=== PATIENT | male | born 1985 ===

== ENCOUNTER → 2018-03-24 14:02 | Outpatient (CLI) | payer MEDICARE, MEDICAID, SELFPAY ==
[2018-03-24 15:02] LABS: Hemoglobin A1C% w Est Avg Glu 5.8 % (4.0-6.0)
[2018-03-24 17:01] LABS: Estimated Glomerular Filt Rate > 60.0 mL/min (>60); Glucose 97 mg/dL (70-100); HEMOLYSIS 27 (0-50); Potassium 4.4 mmol/L (3.4-5.1); Sodium 142 mmol/L (137-145)
== END ==
PROVIDERS: PCP Internal Medicine; Visit Provider Internal Medicine
DX: R73.02 Impaired glucose tolerance (oral) (principal)
CPT/HCPCS: 36415; 80048; 83036

== ENCOUNTER → 2018-09-22 08:40 | Outpatient (CLI) | payer MEDICARE, MEDICAID, SELFPAY ==
[2018-09-22 09:04] LABS: Add Manual Diff / Slide Review NO; Basophils Percent Auto 0.5 % (0-2); Eosinophils Percent Auto 0.7 % (2-4); Hematocrit 42.9 % (41-53); Hemoglobin 14.3 g/dL (13.5-17.5); Mean Corpuscular HGB Conc 33.3 % (30-36); Mean Corpuscular Hemoglobin 28.3 PG (26-34); Mean Corpuscular Volume 84.9 fL (80-100); Neutrophils Absolute Auto 3900 /uL (3000-5900); Neutrophils Percent Auto 52.8 % (50-75); Platelet Count 336 X10^3/uL (150-400); Red Blood Cell Count 5.06 X10^6/uL (4.5-5.9); Red Cell Distribution Width 13.8 % (11.6-14.8); White Blood Cell Count 7.4 X10^3/uL (4.5-11.0)
[2018-09-22 09:23] LABS: Hemoglobin A1C% w Est Avg Glu 5.9 % (4.0-6.0)
[2018-09-22 09:32] LABS: Alanine Aminotransferase 66 IU/L (21-72); Albumin 4.4 g/dL (3.5-5.0); Albumin Globulin Ratio 1.4 (1.0-2.8); Alkaline Phosphatase 77 U/L (38-126); Aspartate Aminotransferase 37 IU/L (17-59); Bilirubin Total 0.9 mg/dL (0.2-1.3); Blood Urea Nitrogen 15 mg/dL (9-20); Calcium 9.7 mg/dL (8.4-10.2); Carbon Dioxide 32 mmol/L (22-32); Chloride 102 mmol/L (98-107); Estimated Glomerular Filt Rate > 60.0 mL/min (>60); Globulin 3.1 g/dL (1.7-4.1); Glucose 106 mg/dL (70-100); HEMOLYSIS < 15 (0-50); Potassium 4.5 mmol/L (3.4-5.1); Sodium 144 mmol/L (137-145); Total Protein 7.5 g/dL (6.3-8.2)
== END ==
PROVIDERS: PCP Internal Medicine; Visit Provider Internal Medicine
DX: R73.02 Impaired glucose tolerance (oral) (principal); E66.9 Obesity, unspecified; F20.1 Disorganized schizophrenia
CPT/HCPCS: 36415; 80053; 83036; 85025

== ENCOUNTER → 2021-02-05 15:50 | Outpatient (CLI) | payer MEDICARE, MEDICAID, SELFPAY ==
--- NOTE | 2021-02-05 16:02 | DI.RAD.S_ITS ---
PROCEDURE: XR LUMBAR SPINE 2-3V INDICATIONS: LOW BACK PAIN TECHNIQUE: 3 views of the lumbar spine were acquired. COMPARISON: None. FINDINGS: Bones: No fracture. Multilevel degenerative endplate sclerosis and spurring. Diffuse facet arthropathy. Mild narrowing of the L4-L5 and L5-S1 disc spaces trace retrolisthesis of L4 on L5 Soft tissues: Overlying bowel gas pattern is normal. No suspicious soft tissue calcifications. IMPRESSION: Mild lower lumbar spondylosis and facet disease Dictated by: Matt Rdz M.D. on 02/05/2021 at 16:42 Approved by: Matt Rdz M.D. on 02/05/2021 at 16:44
== END ==
PROVIDERS: PCP Internal Medicine; Referring Provider Internal Medicine; Visit Provider Internal Medicine
DX: M54.5 Low back pain (principal); M47.816 Spondylosis without myelopathy or radiculopathy, lumbar region
CPT/HCPCS: 72100

== ENCOUNTER 2021-02-22 15:24 | Outpatient (RCR) | payer MEDICARE, MEDICAID, SELFPAY ==
--- NOTE | 2021-02-22 16:45 | PT.OIE ---
Current Diagnoses Low back pain (02/22/21) Visit Care Team Role Provider Type Eric Davis MD Attending Provider Physician Family Provider Primary Care Provider Referring Provider Specialty: Internal Medicine Address: [address] [place] [address], [facility] Email: [email or web address] Initial Evaluation PT-OP-A Visit Information Start: 02/22/21 17:34 Freq: Status: Active Protocol: Document 02/22/21 16:00 DCW (Rec: 02/22/21 17:45 DCW [id number]) Out-Patient Physical Therapy Visit Information Visit Information Visit Type Initial Evaluation Visit Start Time 16:00 Visit Stop Time 16:35 Total Visit Minutes 35 Visit Number 1 Number of EVENTS SPECIALIST Visits 0 Evaluation Information Evaluation Date 02/22/21 PT-OP-B Current Condition Start: 02/22/21 17:34 Freq: Status: Active Protocol: Document 02/22/21 16:00 DCW (Rec: 02/22/21 17:45 DCW [id number]) Current Condition History of Current Condition Onset Date 6 months Current Complaints Recent low back pain History of Current Condition Pt is a 35 year old male with a recent history of low back pain. Pt attends his eval with his mother, pt has difficulty with communication, and has a history of schizophrenia, anxiety, and depression. Pt's mother notes that in July , pt was helping a neighbor unload a car, and began complaining of back pain after lifting an air conditioner. Pt had difficulty bending over , putting socks on, standing up, or walking too long. Noted it was also worse with cold weather during the winter. Pt's mother notes that starting February 07, pt started taking pain pills, which didn't seem to be helping, however he woke up this morning completely pain free. Pt currently has no complaints, and feels like he is back to his usual level of function. Prior Treatments and Tests Lumbar x-ray: IMPRESSION: Mild lower lumbar spondylosis and facet disease Per: Matt Rdz M.D. on 02/05/2021 PT-OP-C Subjective Start: 02/22/21 17:34 Freq: Status: Active Protocol: Document 02/22/21 16:00 DCW (Rec: 02/22/21 17:45 DCW [id number]) OP-PT Subjective Patient Comments Patient Comments Pt notes he feels good today Patient Questionnaires Oswestry Low Back Index Oswestry Score 0% Oswestry Impairment 0% Impaired (Score 0) PT-OP-F Manual Assessment Start: 02/22/21 17:34 Freq: Status: Active Protocol: Document 02/22/21 16:00 DCW (Rec: 02/22/21 17:49 DCW [id number]) Manual Assessments Soft Tissue Assessment Soft Tissue Mobility Assessment No tenderness noted along paraspinals, piriformis, or psoas PT-OP-K Range of Motion Start: 02/22/21 17:34 Freq: Status: Active Protocol: Document 02/22/21 16:00 DCW (Rec: 02/22/21 17:49 DCW [id number]) Lumbar Spine Range of Motion Lumbar Spine Active Degrees Testing Position Standing Flexion 25 Extension 15 Comments Stops at 25?, reports no pain, no stiffness, just won't go farther, unable to verbalize why he can't go farther. PT-OP-L Special Tests Start: 02/22/21 17:34 Freq: Status: Active Protocol: Document 02/22/21 16:00 DCW (Rec: 02/22/21 17:51 DCW [id number]) Special Tests Lumbar Spine Special Tests AYDEE Test Results Negative Vertical Spine Loading Test Results Negative Straight Leg Raise Test Results HS tightness, L 45?, R 65? Slump Test Results Negative A-P Shearing Test Results Negative Hip Special Tests Piriformis Test Results Negative PT-OP-M Strength Start: 02/22/21 17:52 Freq: Status: Active Protocol: Document 02/22/21 16:00 DCW (Rec: 02/22/21 17:52 DCW [id number]) Hip Strength Hip Manual Muscle Testing Bilateral Flexion (L2) 5 Normal Abduction 5 Normal Adduction 5 Normal External Rotation 5 Normal Internal Rotation 5 Normal Knee Strength Knee Manual Muscle Testing Bilateral Flexion (S2) 5 Normal Extension (L3) 5 Normal PT-OP-T Assessment and Plan Start: 02/22/21 17:34 Freq: Status: Active Protocol: Document 02/22/21 16:00 DCW (Rec: 02/23/21 08:37 DCW [id number]) Physical Therapy Assessment Rehab Potential Rehabilitation Potential Excellent Evaluation Complexity Number of Personal Factors/Comorbidities 3 or More Number of Body Systems Impaired 1-2 Clinical Presentation at Evaluation Stable Impairments Impairments Pain,ROM Goals 2 Impairment Pt's back pain had been limiting his participation in walking exercise Retirement Goal (LTG) Pt to walk iTMan loop with his mom with no increased low back pain. LTG Duration 04/24/21 One Impairment Pt does not have an appropriate home exercise program Short Term Goal (STG) Pt to be independent and compliant with an appropriate HEP STG Duration 03/24/21 Assessment Summary Assessment At the time of the evaluation, pt was reporting no pain, all special testing was negative, and pt in general reported that he felt good and had no complaints at all. If this is the case, no further out- patient therapy is needed, because there is no deficit to work on. Pt's mother, however , was a little hesitant to say for sure that pt should be discharged, because today was the very first day that he reported no pain, and she did not want him to have a recurrence. Therapist agreed to keep pt's scheduled appointments for now, and if pt has a flare-up, he should come in for treatment. If, by the time of pt's 03/05/21 visit , he still is asymptomatic, pt will be discharged at that time. Physical Therapy Plan Frequency and Duration Frequency of Treatment 2x/Week Duration of Treatment Two months Plan of Care Start Date 02/22/21 Plan of Care End Date 04/24/21 Therapeutic Interventions Therapeutic Interventions Home Exercise Program,Joint Mobilizations,Manual Therapy, Patient/Caregiver Education, Self-Care/Home Management,Soft Tissue Mobilization, Therapeutic Exercises Modalities Cold Pack/Ice Massage,Electric Stimulation,Hot Packs Next Visit Focus/Plan Next Note Type Treatment Note Next Visit Plan Assess back pain levels, STM as indicated
--- NOTE | 2021-02-22 16:45 | PT.OPPOC ---
Physical, Occupational & Speech Therapy At [facility] Current Diagnoses Low back pain (02/22/21) Visit Care Team Role Provider Type Eric Davis MD Attending Provider Physician Family Provider Primary Care Provider Referring Provider Specialty: Internal Medicine Address: [address] [place] [address], [id number] Email: [email or web address] Plan Of Care PT-OP-T Assessment and Plan Start: 02/22/21 17:34 Freq: Status: Active Protocol: Document 02/22/21 16:00 DCW (Rec: 02/23/21 08:37 DCW [id number]) Physical Therapy Assessment Rehab Potential Rehabilitation Potential Excellent Evaluation Complexity Number of Personal Factors/Comorbidities 3 or More Number of Body Systems Impaired 1-2 Clinical Presentation at Evaluation Stable Impairments Impairments Pain,ROM Goals 2 Impairment Pt's back pain had been limiting his participation in walking exercise Loan Assistant Goal (LTG) Pt to walk Bracketr with his mom with no increased low back pain. LTG Duration 04/24/21 One Impairment Pt does not have an appropriate home exercise program Short Term Goal (STG) Pt to be independent and compliant with an appropriate HEP STG Duration 03/24/21 Assessment Summary Assessment At the time of the evaluation, pt was reporting no pain, all special testing was negative, and pt in general reported that he felt good and had no complaints at all. If this is the case, no further out- patient therapy is needed, because there is no deficit to work on. Pt's mother, however , was a little hesitant to say for sure that pt should be discharged, because today was the very first day that he reported no pain, and she did not want him to have a recurrence. Therapist agreed to keep pt's scheduled appointments for now, and if pt has a flare-up, he should come in for treatment. If, by the time of pt's 03/05/21 visit , he still is asymptomatic, pt will be discharged at that time. Physical Therapy Plan Frequency and Duration Frequency of Treatment 2x/Week Duration of Treatment Two months Plan of Care Start Date 02/22/21 Plan of Care End Date 04/24/21 Therapeutic Interventions Therapeutic Interventions Home Exercise Program,Joint Mobilizations,Manual Therapy, Patient/Caregiver Education, Self-Care/Home Management,Soft Tissue Mobilization, Therapeutic Exercises Modalities Cold Pack/Ice Massage,Electric Stimulation,Hot Packs Next Visit Focus/Plan Next Note Type Treatment Note Next Visit Plan Assess back pain levels, STM as indicated Plan of Care Dates Plan of Care Start Date 02/22/21 Plan of Care End Date 04/24/21 Electronically Signed by: Roby Vidal, PT 02/23/21 0837 Please Sign and Return: I have reviewed this Plan of Care and certify that the skilled therapy services above are required to meet the patient?s needs. Physician Signature Date Printed Name and Credentials Clinical Instructor Signature Printed Name and Credentials
--- NOTE | 2021-02-26 09:32 | PT.OPDS ---
Current Diagnoses Low back pain (02/22/21) Visit Care Team Role Provider Type Eric Davis MD Attending Provider Physician Family Provider Primary Care Provider Referring Provider Specialty: Internal Medicine Address: [address] [place] [address], [facility] Email: [email or web address] Visit Number Visit Number 1 Discharge Summary PT-OP-B Current Condition Start: 02/22/21 17:34 Freq: Status: Active Protocol: Document 02/22/21 16:00 DCW (Rec: 02/22/21 17:45 DCW [id number]) Current Condition History of Current Condition Onset Date 6 months Current Complaints Recent low back pain History of Current Condition Pt is a 35 year old male with a recent history of low back pain. Pt attends his eval with his mother, pt has difficulty with communication, and has a history of schizophrenia, anxiety, and depression. Pt's mother notes that in July , pt was helping a neighbor unload a car, and began complaining of back pain after lifting an air conditioner. Pt had difficulty bending over , putting socks on, standing up, or walking too long. Noted it was also worse with cold weather duing the winter. Pt's mother notes that starting February 07, pt started taking pain pills, which didn't seem to be helping, however he woke up this morning completely pain free. Pt currently has no complaints, and feels like he is back to his usual level of function. Prior Treatments and Tests Lumbar x-ray: IMPRESSION: Mild lower lumbar spondylosis and facet disease Per: Matt Rdz M.D. on 02/05/2021 PT-OP-C Subjective Start: 02/22/21 17:34 Freq: Status: Active Protocol: Document 02/22/21 16:00 DCW (Rec: 02/22/21 17:45 DCW [id number]) OP-PT Subjective Patient Comments Patient Comments Pt notes he feels good today Patient Questionnaires Oswestry Low Back Index Oswestry Score 0% Oswestry Impairment 0% Impaired (Score 0) PT-OP-F Manual Assessment Start: 02/22/21 17:34 Freq: Status: Active Protocol: Document 02/22/21 16:00 DCW (Rec: 02/22/21 17:49 DCW [id number]) Manual Assessments Soft Tissue Assessment Soft Tissue Mobility Assessment No tenderness noted along paraspinals, piriformis, or psoas PT-OP-K Range of Motion Start: 02/22/21 17:34 Freq: Status: Active Protocol: Document 02/22/21 16:00 DCW (Rec: 02/22/21 17:49 DCW [id number]) Lumbar Spine Range of Motion Lumbar Spine Active Degrees Testing Position Standing Flexion 25 Extension 15 Comments Stops at 25?, reports no pain, no stiffness, just won't go farther, unable to verbalize why he can't go farther. PT-OP-L Special Tests Start: 02/22/21 17:34 Freq: Status: Active Protocol: Document 02/22/21 16:00 DCW (Rec: 02/22/21 17:51 DCW [id number]) Special Tests Lumbar Spine Special Tests AYDEE Test Results Negative Vertical Spine Loading Test Results Negative Straight Leg Raise Test Results HS tightness, L 45?, R 65? Slump Test Results Negative A-P Shearing Test Results Negative Hip Special Tests Piriformis Test Results Negative PT-OP-M Strength Start: 02/22/21 17:52 Freq: Status: Active Protocol: Document 02/22/21 16:00 DCW (Rec: 02/22/21 17:52 DCW [id number]) Hip Strength Hip Manual Muscle Testing Bilateral Flexion (L2) 5 Normal Abduction 5 Normal Adduction 5 Normal External Rotation 5 Normal Internal Rotation 5 Normal Knee Strength Knee Manual Muscle Testing Bilateral Flexion (S2) 5 Normal Extension (L3) 5 Normal PT-OP-T Assessment and Plan Start: 02/22/21 17:34 Freq: Status: Active Protocol: Document 02/26/21 09:31 DCW (Rec: 02/26/21 09:32 DCW [id number]) Physical Therapy Assessment Assessment Summary Assessment Pt's mother phoned the clinic Friday night, leaving a message to request discharge, pt remains pain-free. Pt will be discharged at this time, will require a new referral in order to return to skilled therapy.
== END 2021-03-01 09:36 | disposition home or self-care (01) ==
LOC: PHYS 15:24
PROVIDERS: Family Provider Internal Medicine; PCP Internal Medicine; Referring Provider Internal Medicine; Visit Provider Internal Medicine
DX: M54.5 Low back pain (principal)
CPT/HCPCS: 97161

== ENCOUNTER → 2021-09-12 07:34 | Outpatient (CLI) | payer MEDICARE, MEDICAID, SELFPAY ==
[2021-09-12 08:20] LABS: COVID19 -Nasal RAPID POSITIVE (Negative)
== END ==
PROVIDERS: Family Provider Internal Medicine; PCP Internal Medicine; Visit Provider Nurse Practitioner
DX: U07.1 COVID-19 (principal)
CPT/HCPCS: 87635

== ENCOUNTER → 2021-09-12 08:27 | Outpatient (CLI) | payer MEDICARE, MEDICAID, SELFPAY ==
--- NOTE | 2021-09-12 08:29 | DI.RAD.S_ITS ---
PROCEDURE: XR CHEST 2V INDICATIONS: cough TECHNIQUE: 2 views of the chest were acquired. COMPARISON: None. FINDINGS: Surgical changes and devices: None. Lungs and pleura: There are a few patchy indistinct opacities in the lung bases. No pleural effusions or pneumothorax. Mediastinum: Mediastinal contours are normal. Heart size is normal. Bones and chest wall: No suspicious bony abnormalities. Soft tissues appear unremarkable. IMPRESSION: 1. Patchy indistinct opacities in the lung bases suggestive of pneumonia. Dictated by: Lazaro Mercado M.D. on 09/12/2021 at 9:04 Approved by: Lazaro Mercado M.D. on 09/12/2021 at 9:05
== END ==
PROVIDERS: Family Provider Internal Medicine; PCP Internal Medicine; Referring Provider Nurse Practitioner; Visit Provider Nurse Practitioner
DX: U07.1 COVID-19
CPT/HCPCS: 71046; 87635

== ENCOUNTER 2021-09-16 02:02 | Inpatient (IN) | payer MEDICARE, MEDICAID, SELFPAY ==
[2021-09-16] VITALS (54 sets, daily range): BP systolic 124–163; BP diastolic 63–84; PULSE 64–120; RESP 0–69; TEMP 35.9–39.6; O2SAT 87–98; BMI 42.2; BMI 42.1
--- NOTE | 2021-09-16 02:04 | DI.RAD.S_ITS ---
PROCEDURE: XR CHEST 1V INDICATIONS: Shortness of breath. Covert positive. TECHNIQUE: One view of the chest was acquired. COMPARISON: [facility], CR, XR CHEST 2V, 09/12/2021, 8:25. FINDINGS: Surgical changes and devices: None. Lungs and pleura: Bilateral airspace opacities in the mid and lower lungs. No pleural effusion or pneumothorax. Mediastinum: The left heart border is obscured. Heart size cannot be assessed. Bones and chest wall: No suspicious bony lesions. Overlying soft tissues appear unremarkable. IMPRESSION: Bilateral pneumonia. Comment: Final report is concordant with preliminary interpretation by [facility] Dictated by: Gerardo Delgadillo M.D. on 09/16/2021 at 7:38 Approved by: Gerardo Delgadillo M.D. on 09/16/2021 at 7:39
--- NOTE | 2021-09-16 02:06 | ED_ITS ---
HPI - General Adult General Chief complaint: Shortness of Breath/Dyspnea Stated complaint: SOB, COVID + Time Seen by Provider: 09/16/21 02:02 Source: patient and EMS Mode of arrival: EMS Limitations: no limitations History of Present Illness HPI narrative: Patient is a 36-year-old male. Has developmental delay. Is here with his mother. Is unvaccinated and COVID-19. Four days ago tested positive for COVID-19. Started having symptoms approximately 3 days prior to that. EMS was called this evening due to a increase in work of breathing. EMS report that there room air saturation was 71%. Patient has had a cough. Was also febrile per EMS. Patient states ?a little ?with response to questions about chest discomfort. Denies any abdominal pain. No lower extremity swelling. Patient's oxygen saturations were greater than 90% on 6 L of nasal cannula. Related Data Home Medications Medication Instructions Recorded Confirmed olanzapine 10 mg tablet 10 mg PO BEDTIME 09/16/21 09/16/21 Allergies Allergy/AdvReac Type Severity Reaction Status Date / Time No Known Drug Allergies Allergy Verified 09/16/21 02:15 Review of Systems Constitutional Constitutional: Reports fever(s) Cardiovascular Cardiovascular: Reports as per HPI and Reports dyspnea Respiratory Respiratory: Reports cough and Reports dyspnea Gastrointestinal Gastrointestinal: Denies abdominal pain, Denies nausea and Denies vomiting Integumentary/Breasts Skin/Breast: Reports system reviewed and no additional complaints, except as documented Hematologic/Lymphatic On Anticoagulants: No Patient History Medical History (Updated 09/16/21 @ 03:42 by Ayana Oneill MD) Cognitive developmental delay COVID-19 Schizophrenia Surgical History (Updated 09/16/21 @ 03:42 by Ayana Oneill MD) No significant past surgical history Family History (Updated 09/16/21 @ 03:43 by Ayana Oneill MD) Mother Diabetes mellitus Father Drug use Social History caregiver/support person: Yes Exam Initial Vital Signs Initial Vital Signs: Vital Signs Pulse Rate 119 H 09/16/21 02:03 Respiratory Rate 69 H 09/16/21 02:03 Pulse Oximetry 91 09/16/21 02:03 Const General: cooperative and well developed HENSD Head: normal to inspection and normocephalic Eyes General: appearance normal, both eyes and all related structures Resp Effort & Inspection: labored and tachypneic Auscultation: clear to auscultation bilaterally Cardio Rate: tachycardic Rhythm: regular rhythm GI Inspection: normal to inspection Skin General: no rashes or lesions noted Neuro General: patient alert, patient awake and moves all extremities Extrem General: No edema Psych Appearance: grossly normal and well kempt Course Orders Ordered: ED Orders 09/16/21 02:03 D Dimer Stat Procalcitonin Stat 09/16/21 02:04 XR chest 1V Stat Complete Blood Count AUTO DIFF Stat EKG-12 Lead Stat RT Consult Eval and Treat Now 09/16/21 02:05 Blood Culture Stat C-Reactive Protein Quant Stat Comprehensive Metabolic Panel Stat Ferritin Stat Lactate (Lactic Acid) Stat Lactate Dehydrogenase Stat NT-proBNP (BNP-Adult 18+) Stat Troponin & CK Cardiac Panel Stat Acetaminophen (Acetaminophen 325 Mg Tablet) 650 mg PO Q6HR PRN PRN Reason: Fever Enoxaparin Sodium (Enoxaparin 40 Mg/0.4 Ml Syringe) 40 mg SUBCUT DAILY MARLI Famotidine (Famotidine 20 Mg/2 Ml Vial) 20 mg IV BID MARLI Sodium Chloride (Normal Saline 0.9%) 1,000 mls @ 125 mls/hr IV CONT MARLI Last Infusion: 09/16/21 04:07 Dose: 125 mls/hr Documented by: Dextrose/Sodium Chloride (Dextrose 5%-0.9% Ns) 1,000 mls @ 100 mls/hr IV CONT MARLI Last Admin: 09/16/21 04:53 Dose: 100 mls/hr Documented by: Naloxone HCl (Naloxone 0.4 Mg/Ml Vial) 0.2 mg IV Q2MIN PRN PRN Reason: Opiate Reversal Olanzapine (Olanzapine 2.5 Mg Tablet) 10 mg PO BEDTIME MARLI Sennosides (Sennosides 8.6 Mg Tablet) 17.2 mg PO BEDTIME MARLI Discontinued Medications Acetaminophen (Acetaminophen 325 Mg Tablet) 650 mg PO NOW ONE Stop: 09/16/21 02:11 Last Admin: 09/16/21 02:19 Dose: 650 mg Documented by: Dexamethasone (Dexamethasone 10 Mg/Ml Vial) 10 mg IV NOW ONE Stop: 09/16/21 02:04 Last Admin: 09/16/21 02:20 Dose: 10 mg Documented by: Remdesivir 200 mg/ Sodium (Chloride) 250 mls @ 250 mls/hr IV NOW ONE Stop: 09/16/21 03:02 Last Infusion: 09/16/21 04:07 Dose: Infused Documented by: Olanzapine (Olanzapine Odt 10 Mg Tab) 10 mg PO BEDTIME MARLI Vital Signs Vital signs: Vital Signs - 8 hr 09/16/21 02:03 09/16/21 02:05 09/16/21 02:15 Temperature 103.2 F H Pulse Rate 119 H 120 H Respiratory Rate 69 H 58 H 48 H Blood Pressure 128/65 Pulse Oximetry 91 89 L 09/16/21 02:30 09/16/21 02:47 09/16/21 03:00 Temperature Pulse Rate 114 H 115 H Respiratory Rate 48 H 44 H 43 H Blood Pressure 124/84 138/72 Pulse Oximetry 90 L 95 92 Medical Decision Making Medical Records Medical records reviewed: Yes I reviewed the patient's medical records. Lab Data Lab results reviewed: Yes I reviewed the patient's lab results. Result diagrams: 09/16/21 02:40 09/16/21 03:32 Labs: Lab Results 09/16/21 Range/Units 02:40 WBC 8.4 (4.5-11.0) X10^3/uL RBC 4.64 (4.5-5.9) X10^6/uL Hgb 12.8 L (13.5-17.5) g/dL Hct 38.3 L (41-53) % MCV 82.6 (80-100) fL MCH 27.5 (26-34) PG MCHC 33.3 (30-36) % RDW 13.3 (11.6-14.8) % Plt Count 239 (150-400) X10^3/uL Neut % (Auto) 88.8 H (50-75) % Lymph % (Auto) 5.4 L (25-40) % Hopkins % (Auto) 4.0 (3-14) % Eos % (Auto) 0.4 L (2-4) % Baso % (Auto) 1.4 (0-2) % Neut # (Auto) 7500 H (6814-9547) /uL Lymph # (Auto) 500 L (4728-1297) /uL Hopkins # (Auto) 300 (0-900) /uL Eos # (Auto) 0 (0-450) /uL Baso # (Auto) 100 (0-100) /uL Imaging Data Chest x-ray: Radiologist's Impression: Bilateral pneumonia ECG Data Attestation: I personally reviewed and interpreted this ECG as follows: Interpretation: Sinus rhythm Ventricular rate of 120 to Normal axis Normal QRS QTC [address] T wave changes MDM Narrative Medical decision making narrative: Patient was maintaining oxygen saturations initially with 6 L of nasal cannula however was very tachypneic. Was also febrile upon arrival. Was given Tylenol. Labs ordered. Chest x-ray consistent with COVID pneumonia. He is known COVID. Was placed on high-flow nasal cannula of because of his tachypnea. This did seem to improve things somewhat. Discussed the case with Dr. oneill with Internal Medicine who will admit for further evaluation and treatment. Discussed the admission with the patient. He expressed understanding Discharge Plan Departure Patient Disposition: Admitted As Inpatient Clinical Impression: COVID-19, Hypoxia Admit Date/Time: 09/16/21 03:01 Admit Provider: Ayana Oneill
[2021-09-16] MEDS: ACETAMINOPHEN 325 MG TABLET 650 MG PO (02:19)
[2021-09-16] MEDS: SODIUM CHLORIDE 0.9% 1,000 ML 125 ML IV (02:19)
[2021-09-16] MEDS: DEXAMETHASONE 10 MG/ML VIAL IV (02:20)
[2021-09-16 02:57] LABS: Add Manual Diff / Slide Review NO; Basophils Absolute Auto 100 /uL (0-100); Basophils Percent Auto 1.4 % (0-2); Eosinophils Absolute Auto 0 /uL (0-450); Eosinophils Percent Auto 0.4 % (2-4); Hematocrit 38.3 % (41-53); Hemoglobin 12.8 g/dL (13.5-17.5); Lymphocytes Absolute Auto 500 /uL (1100-4500); Lymphocytes Percent Auto 5.4 % (25-40); Mean Corpuscular HGB Conc 33.3 % (30-36); Mean Corpuscular Hemoglobin 27.5 PG (26-34); Mean Corpuscular Volume 82.6 fL (80-100); Monocytes Absolute Auto 300 /uL (0-900); Neutrophils Absolute Auto 7500 /uL (1500-7000); Neutrophils Percent Auto 88.8 % (50-75); Platelet Count 239 X10^3/uL (150-400); Red Blood Cell Count 4.64 X10^6/uL (4.5-5.9); Red Cell Distribution Width 13.3 % (11.6-14.8); White Blood Cell Count 8.4 X10^3/uL (4.5-11.0)
[2021-09-16] MEDS: REMDESIVIR 200 MG in SODIUM CHLORIDE 0.9% 210 ML 250 ML IV (03:07)
--- NOTE | 2021-09-16 03:40 | P.HP_ITS ---
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 He has no history of Asthma or COPD. He is unvaccinated and had been relying on isolation at home with his mother for prevention but did go shopping at the grocery store recently with his mother. They both became ill at the same time and were tested positive on 09/12. He has had a fever, lack of appetite and increasing shortness of breath with exertion. His mother brought him in today because he was now extremely short of breath when moving around in their house. She has diabetes herself but is not nearly as ill as he is. His CXR shows classic severe bilateral viral pneumonia infiltrates. His WBC is 8.4 and his Procalcitonin is pending. His temperature is 103.2 and his RR is 43 with a HR of 115. Patient History Medical History (Updated 09/16/21 @ 03:42 by Ayana Oneill MD) Cognitive developmental delay COVID-19 Schizophrenia Surgical History (Updated 09/16/21 @ 03:42 by Ayana Oneill MD) No significant past surgical history Family & Social History Family History (Updated 09/16/21 @ 03:43 by Ayana Oneill MD) Mother Diabetes mellitus Father Drug use Social History: caregiver/support person Yes Safety & Behavioral: Feels Safe in Current Yes Environment Tobacco & Substance use: No smoking No alcohol Comment: He was born in [place] and moved here with his mother 13 years ago. His mother is his ethnology professor. Dr. Davis is his doctor. Meds Home Medications and Allergies Home Medications Medication Instructions Recorded Confirmed Type olanzapine 10 mg tablet 10 mg PO BEDTIME 09/16/21 09/16/21 History Allergies Allergy/AdvReac Type Severity Reaction Status Date / Time No Known Drug Allergies Allergy Verified 09/16/21 02:15 Review of Systems Review of Systems Narrative: Positive for baseline confusion of DD, shortness of breath with exertion, poor appetite and fevers. Negative for cough, chest pain, nausea, vomiting, abdominal pain, seizures, rashes, bleeding, dysuria, worsening confusion. Exam Vital Signs (past 8 hours): - 09/16/21 02:03 09/16/21 02:05 09/16/21 02:15 Temperature 103.2 F H Pulse Rate 119 H 120 H Respiratory Rate 69 H 58 H 48 H Blood Pressure 128/65 Pulse Oximetry 91 89 L 09/16/21 02:30 09/16/21 02:47 09/16/21 03:00 Temperature Pulse Rate 114 H 115 H Respiratory Rate 48 H 44 H 43 H Blood Pressure 124/84 138/72 Pulse Oximetry 90 L 95 92 Oxygen Delivery Method Heated High Flow Oxygen Flow Rate 60 Narrative Exam Narrative: Alert and oriented at baseline Minimally verbal at baseline Answers are mumbled, terse, confused Defers to his mother PERLAURA, EOMI, Sclerae [place] and Not Icteric Throat looks dry No LN are felt H, N, SC area No thyromegaly JVD less than 6 cm No carotid bruits heard Heart is RRR without murmur Lungs are CTA Abdomen is obese, NT, soft, no organomegaly Ext: No ankle edema or calf tenderness Skin without jaundice or rash Neuro exam: Limited ability to follow exam directions. Motor 5/5 throughout. 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 Covid Pneumonia, present on admission. Active. -admitted with hypoxia requiring HFNC oxygen at 70% and 60 L -CXR with bilateral viral infiltrates. WBC 8.4. Procalcitonin pending on admission. -Started on Remdesivir, Dexamethasone IV in the ED on 09/16 -Full Code -Lovenox for DVT prevention -Isolation Hypoxic Respiratory Failure, present on admission. Active. -Covid Pneumonia - see above -Oxygen by HFNC to keep sat at 90% -Consult teleintensivist Schizophrenia, present on admission. Chronic and Stable. -Continue Olanzapine 10 mg HS Developmental Delay, present on admission. Chronic and Stable -limited communication ability -mother is his decision maker and has a milder Covid respiratory infection herself Lovenox for DVT/PE prevention. Time Spent With Patient Critical Care time: I spent a total of 60 minutes of critical care time on this patient's care today; this time is exclusive of procedural time. Scores Wells' Criteria for PE Clinical signs and symptoms of DVT: No PE is #1 Dx or equally likely: No Heart rate > 100: Yes Immobilization at least 3 days or surg in previous 4 weeks: No History of PE or DVT: No Hemoptysis: No Malignancy w/Treatment within 6 months or palliative: No Wells' PE Score total: 1.5
[2021-09-16 03:52] LABS: D Dimer 679 ng/mL (<230); Lactate (Lactic Acid) 1.3 mmol/L (0.7-2.1)
[2021-09-16 03:57] LABS: Alanine Aminotransferase 57 IU/L (<50); Albumin 3.8 g/dL (3.5-5.0); Albumin Globulin Ratio 1.2 (1.0-2.8); Alkaline Phosphatase 75 U/L (38-126); Aspartate Aminotransferase 103 IU/L (17-59); BUN Creatinine Ratio 17.4 (6-22); Bilirubin Total 1.3 mg/dL (0.2-1.3); Blood Urea Nitrogen 19 mg/dL (9-20); Calcium 8.3 mg/dL (8.4-10.2); Carbon Dioxide 29 mmol/L (22-32); Chloride 102 mmol/L (98-107); Creatine Kinase 172 U/L (55-170); Estimated Glomerular Filt Rate > 60.0 mL/min (>60); Globulin 3.3 g/dL (1.7-4.1); Glucose 156 mg/dL (70-100); HEMOLYSIS < 15 (0-50); Potassium 3.7 mmol/L (3.4-5.1); Sodium 139 mmol/L (137-145); Total Protein 7.1 g/dL (6.3-8.2)
[2021-09-16 04:10] LABS: NT-proBNP (BNP-Adult 18+) 81 pg/mL (<125); Troponin I < 0.012 ng/mL (0.01-0.034)
[2021-09-16 04:12] LABS: C-Reactive Protein Quant 15.5 mg/dL (<1.0)
[2021-09-16 04:24] LABS: Lactate Dehydrogenase 2111 U/L (313-618)
[2021-09-16] MEDS: DEXTROSE 5%-0.9% NS 1,000 ML 100 ML IV (04:53)
[2021-09-16 05:19] LABS: Ferritin 978 ng/mL (18-464)
[2021-09-16 05:24] LABS: CKMB % Relative Index 0.3 % (1.5-5.0); Creatine Kinase MB 0.46 ng/mL (<2.37)
--- NOTE | 2021-09-16 05:51 | P.TELICUCN_ITS ---
History of Present Illness Consult details Chief complaint: SOB, COVID + :: This patient was seen via real time interactive two-way audiovisual telecommunication. Narrative: a 36 year old male with Developmental Delay and Schizophrenia who lives full t gustavo with his mother, unvaccinated , admitted for sever multifocal Covid Pneumonia and sever hypoxia, currently on HFNC 60 L & 70% ? Assessment: Sever multifocal Covid Pneumonia Acute hypoxemic respiratory failure Acute hepatitis / COVID H/o of Schizophrenia H/o of Developmental delay Rec: Continue current HFNC 60 L & 70%, low threshold for intubation Continue Dexamethasone, Remdesivir, add Barticitinib Daily CBC & CMP, trend renal and liver function and adjust meds accordingly Dc IV fluid Increase Lovenox to intermediate dose 80 mg IV BID Trend inflammatory markers Mom is the POA, I explained that there is high chance that he will need mecha nical ventilation soon, currently clinically comfortable on HFNC, CXR looks very bad/ very sever bilateral multifocal infiltrate. Plan was discussed with Dr. Oneill [facility] Medical History (Updated 09/16/21 @ 03:42 by Ayana Oneill MD) Cognitive developmental delay COVID-19 Schizophrenia Surgical History (Updated 09/16/21 @ 03:42 by Ayana Oneill MD) No significant past surgical history Family History (Updated 09/16/21 @ 03:43 by Ayana Oneill MD) Mother Diabetes mellitus Father Drug use Social History caregiver/support person: Yes Current Medications Current Medications Medications: Home Medications olanzapine 10 mg tablet 10 mg PO BEDTIME 09/16/21 [History Confirmed 09/16/21] Visit Medications (administered) Generic Name Dose Route Start Last Admin Trade Name Freq PRN Reason Stop Dose Admin Sodium Chloride 1,000 mls @ 125 mls/hr 09/16/21 02:15 09/16/21 05:07 Normal Saline 0.9% IV 0 mls/hr CONT MARLI Infusion Dextrose/Sodium Chloride 1,000 mls @ 100 mls/hr 09/16/21 03:45 09/16/21 04:53 Dextrose 5%-0.9% Ns IV 100 mls/hr CONT MARLI Administration Exam Vital Signs (past 8 hours): - 09/16/21 02:03 09/16/21 02:05 09/16/21 02:15 Temperature 103.2 F H Pulse Rate 119 H 120 H Respiratory Rate 69 H 58 H 48 H Blood Pressure 128/65 Pulse Oximetry 91 89 L 09/16/21 02:30 09/16/21 02:47 09/16/21 03:00 Temperature Pulse Rate 114 H 115 H Respiratory Rate 48 H 44 H 43 H Blood Pressure 124/84 138/72 Pulse Oximetry 90 L 95 92 09/16/21 03:30 09/16/21 03:31 09/16/21 04:02 Temperature 97.1 F L Pulse Rate 108 H 107 H 99 H Respiratory Rate 0 L 40 H 30 H Blood Pressure 163/67 H 152/69 H Pulse Oximetry 94 94 09/16/21 04:08 Temperature Pulse Rate 101 H Respiratory Rate 40 H Blood Pressure Pulse Oximetry 93 Oxygen Delivery Method Heated High Flow Oxygen Flow Rate 60 Objective Labs Result Diagrams: 09/16/21 02:40 09/16/21 03:32 Labs: Laboratory Results - last 24 hr 09/16/21 09/16/21 09/16/21 02:40 03:32 03:32 WBC 8.4 RBC 4.64 Hgb 12.8 L Hct 38.3 L MCV 82.6 MCH 27.5 MCHC 33.3 RDW 13.3 Plt Count 239 Neut % (Auto) 88.8 H Lymph % (Auto) 5.4 L [place] % (Auto) 4.0 Eos % (Auto) 0.4 L Baso % (Auto) 1.4 Neut # (Auto) 7500 H Lymph # (Auto) 500 L [place] # (Auto) 300 Eos # (Auto) 0 Baso # (Auto) 100 D-Dimer 679 H Sodium Potassium Chloride Carbon Dioxide BUN Creatinine Estimated GFR BUN/Creatinine Ratio Glucose Lactate Calcium Ferritin Total Bilirubin AST ALT Alkaline Phosphatase Lactate Dehydrogenase Total Creatine Kinase CK-MB (CK-2) CK-MB (CK-2) Rel Index Troponin I C-Reactive Protein NT-Pro-B Natriuret Pep Total Protein Albumin Globulin Albumin/Globulin Ratio Procalcitonin 0.80 H 09/16/21 09/16/21 03:32 03:32 WBC RBC Hgb Hct MCV MCH MCHC RDW Plt Count Neut % (Auto) Lymph % (Auto) [place] % (Auto) Eos % (Auto) Baso % (Auto) Neut # (Auto) Lymph # (Auto) [place] # (Auto) Eos # (Auto) Baso # (Auto) D-Dimer Sodium 139 Potassium 3.7 Chloride 102 Carbon Dioxide 29 BUN 19 Creatinine 1.09 Estimated GFR > 60.0 BUN/Creatinine Ratio 17.4 Glucose 156 H Lactate 1.3 Calcium 8.3 L Ferritin 978 H Total Bilirubin 1.3 AST 103 H ALT 57 H Alkaline Phosphatase 75 Lactate Dehydrogenase 2111 H Total Creatine Kinase 172 H CK-MB (CK-2) 0.46 CK-MB (CK-2) Rel Index 0.3 L Troponin I < 0.012 C-Reactive Protein 15.5 H NT-Pro-B Natriuret Pep 81 Total Protein 7.1 Albumin 3.8 Globulin 3.3 Albumin/Globulin Ratio 1.2 Procalcitonin Assessment & Plan Time Spent With Patient Critical Care time: I spent a total of [] minutes of critical care time on this patient's care today; this time is exclusive of procedural time.
--- NOTE | 2021-09-16 06:20 | PC.ADMIT ---
[id number] Admission Note: The patient,King Madison Kramer,36 y/o, was given written information regarding hospital policies, unit procedures and contact persons. Patient's smoking status: Never smoker. Vital Signs - 8 hr 09/16/21 02:03 09/16/21 02:05 09/16/21 02:15 Temperature 103.2 F H Pulse Rate 119 H 120 H Respiratory Rate 69 H 58 H 48 H Blood Pressure 128/65 Pulse Oximetry 91 89 L 09/16/21 02:30 09/16/21 02:47 09/16/21 03:00 Temperature Pulse Rate 114 H 115 H Respiratory Rate 48 H 44 H 43 H Blood Pressure 124/84 138/72 Pulse Oximetry 90 L 95 92 09/16/21 03:30 09/16/21 03:31 09/16/21 04:02 Temperature 97.1 F L Pulse Rate 108 H 107 H 99 H Respiratory Rate 0 L 40 H 30 H Blood Pressure 163/67 H 152/69 H Pulse Oximetry 94 94 09/16/21 04:08 Temperature Pulse Rate 101 H Respiratory Rate 40 H Blood Pressure Pulse Oximetry 93 Patient was admitted to ICU Room 227 at 0400, oriented x3, speech slightly impaired/mumbled, he is developmentally delayed, follows directions, answers most of questions with assist from his mother who is room, and can participate in care. On HHFNC 60L/70%, SpO2 >92%, RR 30s, lung sounds dim/tight, occasional dry cough. 1st dose of Remdesivir complete, SR, BBB, afebrile. Patient says he is feeling better. Tele-Intercept, Dr Crowder notified who saw patient via Tele camera. Discussed proning and side-lying, assist patient to turn onto his right side.
[2021-09-16] MEDS: BARICITINIB 2 MG TABLET 4 MG PO (08:24)
[2021-09-16] MEDS: FAMOTIDINE 20 MG/2 ML VIAL IV ×2 (08:24→21:02)
[2021-09-16] MEDS: ENOXAPARIN 80 MG/0.8 ML SYRINGE SUBCUT (08:24)
[2021-09-16 09:22] LABS: Add Manual Diff / Slide Review NO; Basophils Absolute Auto 0 /uL (0-100); Basophils Percent Auto 0.3 % (0-2); Eosinophils Absolute Auto 0 /uL (0-450); Hematocrit 39.2 % (41-53); Hemoglobin 13.1 g/dL (13.5-17.5); Lymphocytes Absolute Auto 700 /uL (1100-4500); Mean Corpuscular HGB Conc 33.4 % (30-36); Mean Corpuscular Hemoglobin 27.7 PG (26-34); Mean Corpuscular Volume 82.9 fL (80-100); Monocytes Absolute Auto 200 /uL (0-900); Monocytes Percent Auto 3.1 % (3-14); Neutrophils Absolute Auto 6500 /uL (1500-7000); Neutrophils Percent Auto 87.6 % (50-75); Platelet Count 225 X10^3/uL (150-400); Red Blood Cell Count 4.74 X10^6/uL (4.5-5.9); Red Cell Distribution Width 13.2 % (11.6-14.8); White Blood Cell Count 7.4 X10^3/uL (4.5-11.0)
--- NOTE | 2021-09-16 10:23 | PC.NURSE ---
Addendum entered by Lesa Ernandez R.N. 09/16/21 14:29: bladder scanned for 567mls, assisted pt to stand and he was unable to void using urinal- placed patel per earlier order and jaquan clear urine draining pt tolerated well - mother remains at bedside Addendum entered by Lesa Ernandez R.N. 09/16/21 13:28: still no urination yet this shift- pt denies urge to void and bladder scanning at present Original Note: PT WITH SOMEWHAT MUMBLED ANSWERS BUT APPROPRIATE- LUNGS DECREASED BILAT ALL MCCALL- NON PRODUCTIVE COUGH - DECREASED HHFNC TO 55L/60% FIO2 FROM ( 60L/70%) HEART RATE REMAINS 90'S SINUS AND ENCOURAGED/ASSISTED PT TO PRONE IN WHICH HIS SPO2 INCREASED TO 96-98% BUT HE REMAINS TACHYPNEIC AT 44/MIN- MOTHER REMAINS AT BEDSIDE
--- NOTE | 2021-09-16 14:29 | CM.DANOTE ---
Patient is a 36 yo male who was admitted on 09/16/21 for COVID+, SOB. Pt has [facility] and [facility] for insurance and his PCP is Dr. Eric Davis. EMR was reviewed. Per MD, pt has hx of Developmental Delay and Schizophrenia at baseline and unvaccinated for COVID and admitted for severe COVID pneumonia and currently on HFNC 60L. Per RN, pt seems to be responding to the oxygen and may be able to reduce his oxygen needs but if pt does not continue to improve then per ICU rounding MD pt could be high risk for need of intubation. Pt's mother has been bedside as she is also COVID+ and approved to be in room with pt which also helps him due to his DD and limited ability to communicate. Mother confirms that pt lives at home with her and had been isolating at home to reduce risk of barbara COVID since not vaccinated but had been to the store together recently. SW attempted to call pt's mother for d/c planning assessment but Maia did not answer phone and per RN she has stated she is currently refusing to answer the phone due to feeling not well and also due to wanting to just be bedside with pt but RN will help SW to get connected to mother via phone by tomorrow when clearer understanding of pt's progress and oxygen needs. Plan: SW to follow closely for pt's progress and then phone assessment with pt's mother towards determining d/c planning needs and barriers and what services are currently in place that support pt. DAMIAN Edwards Discharge Planning/Care Management CM Discharge Assessment Start: 09/16/21 14:24 Freq: Status: Active Protocol: Document 09/16/21 14:24 BF (Rec: 09/16/21 14:29 [id number]) Discharge Planning Assessment Assigned Environmental Department Manager DAMIAN Goldsmith DPOA/Assigned Designee Name mother Maia Leong Contact Information [phone] Advance Directives? No Advance Directives on File No History Provided By Patient,Parents,Medical Record Has Patient been admitted in last 30 No days? Prior Living Arrangements Apartment/Condo Household Members family Type of transporation used prior to Relies on Others admit Independent with ADL's Yes Is patient alert and oriented? No: DD and schizophrenia Caregiver for Another No Barriers to Discharge Yes Comment COVID+ may be a barrier pending pt's progress and needs at d/c Discharge Plan Home Transportation Arrangement Mother bedside and can transport at d/c if safe for home Additional Comment Pending pt's progress and needs Review Status In Process Please Provide Date Initial DC 09/16/21 Assessment Was Performed Next Review Type Continued Stay Review
--- NOTE | 2021-09-16 20:41 | PM.ICURNDS ---
- :: This patient was seen via real time interactive two-way audiovisual telecommunication. Case was reviewed with patient's RN Note: I established AV contact with the patient's room. Patient resting comfortably on HFNC 55l/60%, down from 70% earlier today. In NAD, only mildly tachypneic. Patient's mother and POA, Maia, at bedside and provided update. All of her questions were answered to her satisfaction. No intervention indicated at this time. Continue with previously outlined plan of care.
[2021-09-16] MEDS: ENOXAPARIN 80 MG/0.8 ML SYRINGE 70 MG SUBCUT (21:02)
[2021-09-16] MEDS: OLANZapine 2.5 MG TABLET 10 MG PO (21:02)
[2021-09-16] MEDS: SENNOSIDES 8.6 MG TABLET 17.2 MG PO (21:02)
[2021-09-17] VITALS (48 sets, daily range): BP systolic 84–134; BP diastolic 46–77; PULSE 45–89; RESP 16–52; TEMP 36.8–37.1; O2SAT 83–99
--- NOTE | 2021-09-17 03:40 | PM.EICU.INT ---
Teleintensivist Intervention Date/Time Was camera activated?: Yes Issue(s) Addressed Issue(s): Resp. Distress/Ventilator management Other:: Called by RN as patient's FiO2 increasing overnight, now on 90%.
--- NOTE | 2021-09-17 03:44 | PM.PN.EICU ---
Subjective Subjective :: This patient was seen via real time interactive two-way audiovisual telecommunication. Note written in error, unable to delete Current Medications Current Medications Medications: Home Medications olanzapine 10 mg tablet 10 mg PO BEDTIME 09/16/21 [History Confirmed 09/16/21] Visit Medications (administered) Generic Name Dose Route Start Last Admin Trade Name Freq PRN Reason Stop Dose Admin Enoxaparin Sodium 70 mg 09/16/21 21:00 09/16/21 21:02 Enoxaparin 80 Mg/0.8 Ml Syringe SUBCUT 70 mg BID MARLI Administration Famotidine 20 mg 09/16/21 09:00 09/16/21 21:02 Famotidine 20 Mg/2 Ml Vial IV 20 mg BID MARLI Administration Heparin Sodium (Porcine) 50 unit 09/16/21 21:00 09/16/21 21:02 Heparin Flush (Cl/Picc/Mid-Line) 50 Unit/5 Ml Syringe IV 50 unit BID MARLI Administration Olanzapine 10 mg 09/16/21 21:00 09/16/21 21:02 Olanzapine 2.5 Mg Tablet PO 10 mg BEDTIME MARLI Administration Sennosides 17.2 mg 09/16/21 21:00 09/16/21 21:02 Sennosides 8.6 Mg Tablet PO 17.2 mg BEDTIME MARLI Administration Objective Ventilator Parameters: Ventilator Settings FiO2 70 Labs Result Diagrams: 09/16/21 09:15 09/17/21 04:40 Labs: Laboratory Results - last 24 hr 09/16/21 09/16/21 09/16/21 03:32 03:32 03:32 WBC RBC Hgb Hct MCV MCH MCHC RDW Plt Count Neut % (Auto) Lymph % (Auto) [place] % (Auto) Eos % (Auto) Baso % (Auto) Neut # (Auto) Lymph # (Auto) [place] # (Auto) Eos # (Auto) Baso # (Auto) D-Dimer 679 H Sodium 139 Potassium 3.7 Chloride 102 Carbon Dioxide 29 BUN 19 Creatinine 1.09 Estimated GFR > 60.0 BUN/Creatinine Ratio 17.4 Glucose 156 H Lactate Calcium 8.3 L Ferritin 978 H Total Bilirubin 1.3 AST 103 H ALT 57 H Alkaline Phosphatase 75 Lactate Dehydrogenase 2111 H Total Creatine Kinase 172 H CK-MB (CK-2) 0.46 CK-MB (CK-2) Rel Index 0.3 L Troponin I < 0.012 C-Reactive Protein 15.5 H NT-Pro-B Natriuret Pep 81 Total Protein 7.1 Albumin 3.8 Globulin 3.3 Albumin/Globulin Ratio 1.2 Procalcitonin 0.80 H Nasal Screen MRSA (PCR) 09/16/21 09/16/21 09/16/21 03:32 08:00 09:15 WBC 7.4 RBC 4.74 Hgb 13.1 L Hct 39.2 L MCV 82.9 MCH 27.7 MCHC 33.4 RDW 13.2 Plt Count 225 Neut % (Auto) 87.6 H Lymph % (Auto) 9.0 L [place] % (Auto) 3.1 Eos % (Auto) 0.0 L Baso % (Auto) 0.3 Neut # (Auto) 6500 Lymph # (Auto) 700 L [place] # (Auto) 200 Eos # (Auto) 0 Baso # (Auto) 0 D-Dimer Sodium Potassium Chloride Carbon Dioxide BUN Creatinine Estimated GFR BUN/Creatinine Ratio Glucose Lactate 1.3 Calcium Ferritin Total Bilirubin AST ALT Alkaline Phosphatase Lactate Dehydrogenase Total Creatine Kinase CK-MB (CK-2) CK-MB (CK-2) Rel Index Troponin I C-Reactive Protein NT-Pro-B Natriuret Pep Total Protein Albumin Globulin Albumin/Globulin Ratio Procalcitonin Nasal Screen MRSA (PCR) Negative for mrsa Exam Vital Signs (past 8 hours): - 09/16/21 21:40 09/16/21 23:00 09/16/21 23:25 Temperature 98.5 F Pulse Rate 81 72 81 Respiratory Rate 36 H 39 H 28 H Blood Pressure 136/76 129/75 Pulse Oximetry 94 90 L 92 09/16/21 23:30 09/16/21 23:38 09/17/21 00:00 Temperature Pulse Rate 70 64 83 Respiratory Rate 41 H 42 H 33 H Blood Pressure 129/75 Pulse Oximetry 92 92 95 09/17/21 00:30 09/17/21 01:00 09/17/21 01:30 Temperature Pulse Rate 73 79 74 Respiratory Rate 43 H 27 H 29 H Blood Pressure Pulse Oximetry 89 L 97 92 09/17/21 01:33 09/17/21 02:00 Temperature Pulse Rate 76 75 Respiratory Rate 27 H 42 H Blood Pressure 129/75 Pulse Oximetry 92 83 L Fraction of Inspired Oxygen 80 Oxygen Delivery Method High Flow Nasal Cannula Oxygen Flow Rate 60 Quality TeleICU VTE Deep Vein Thrombosis/Pulmonary Embolism Present on Admission: No Assessment & Plan Time Spent With Patient Critical Care time: I spent a total of [] minutes of critical care time on this patient's care today; this time is exclusive of procedural time.
--- NOTE | 2021-09-17 03:44 | PC.NURSE ---
0325 09/17/2021 Yard Brakeman Bienvenido consulted re tachypnea and increased O2 needs. Recommends intubation during day shift (09/17/2021). Propofol and fentanyl for sedation post-intubation. Defers CPAP to avoid further barotrauma to lungs. Patient's mother, Maia, at bedside and verbalizes understanding. Mother receptive to proposed plan of care. If patient deteriorates further, don't hesitate to have ED MD intubate or call tele-cardroom attendant service.
--- NOTE | 2021-09-17 03:44 | PM.ICURNDS ---
- :: This patient was seen via real time interactive two-way audiovisual telecommunication. Note: Contacted by patient's RN as FiO2 requirement has increased from 60% to 90% Patient appears more tachypneic, RR in high 30s, low 40s Mother at bedside, provided an extensive update. I discussed likely need for intubation and explained potential complications, need for sedation etc. She understands that time on ventilator may be extensive and ultimately require tracheostomy if he can not be successfully liberated. She agrees to intubation, understanding that we will wait until day shift and additional support arrives. He is otherwise not utilizing accessory muscles of respiration. Instructed RT/RN to utilize CPAP if needed Lasix 40 mg IV x 1 now Morphine only if needed while on NIV Once intubated, keep deeply sedated, goal RASS-3 to -4 Proning if indicated Otherwise continue current interventions Will discuss with oncoming tele-senior software quality analyst
--- NOTE | 2021-09-17 03:46 | PM.CALLCOV.1 ---
Call Coverage Note Note Date of Patient Contact: 09/17/21 Time of Patient Contact: 03:46 Narrative of Care Provided: Patient seen and examined. Nursing concerned due to increased respirations that he may need to be intubated. I requested consultation w/eICU, Dr. Faria was on duty. He earlier recommended early intubation. Patient was not in extremis, but was breathing 40-45/minute, non-retracted. After discussion with the patient's mother and with the patient, we informed them of the possibility for need for intubation. We will do close monitoring and will try to delay intubation for the day shift at the request of Dr. Faria. If he maxes out his humidified 02 needs and starts to exhibit signs of increased WOB, will intubate earlier.
[2021-09-17] MEDS: MORPHINE 2 MG/ML INJ IV (04:08)
[2021-09-17] MEDS: FUROSEMIDE 40 MG/4 ML VIAL IV ×2 (04:09→16:19)
--- NOTE | 2021-09-17 04:20 | PC.NURSE ---
0410 09/17/2021 Dr. Pickard consulted. Please start Precedex gtts and call me 20 minutes after initiation. Expedite intubation with anesthesia. Let's try to avoid an emergent intubation if at all possible.
[2021-09-17] MEDS: dexmedeTOMIDine in 0.9 % NaCL 400 MCG/100 ML PLAST..BAG 10.875 MCG IV (04:34)
--- NOTE | 2021-09-17 04:35 | PM.EVENT ---
Event Note Date Patient Seen: 09/17/21 Time Patient Seen: 04:37 Event Note: Pt w ARDS from COVID, RR 30s-50s at times, inc O2 requirement on HFNC (now 60L 80%). Will add precedex and check an ABG, hopefully we can hold off on intubating him, but if needed will call on-call anesthesiologist to come in to intubate him. Pt seen on cam, and case d/w Blaire Rdz (JOSÉ MIGUEL) and patients bedside nurse.
[2021-09-17 05:10] LABS: Alanine Aminotransferase 69 IU/L (<50); Albumin 3.8 g/dL (3.5-5.0); Albumin Globulin Ratio 1.1 (1.0-2.8); Alkaline Phosphatase 74 U/L (38-126); Aspartate Aminotransferase 81 IU/L (17-59); BUN Creatinine Ratio 25.3 (6-22); Bilirubin Total 0.9 mg/dL (0.2-1.3); Blood Urea Nitrogen 24 mg/dL (9-20); Calcium 8.9 mg/dL (8.4-10.2); Carbon Dioxide 32 mmol/L (22-32); Chloride 101 mmol/L (98-107); Estimated Glomerular Filt Rate > 60.0 mL/min (>60); Globulin 3.6 g/dL (1.7-4.1); Glucose 177 mg/dL (70-100); HEMOLYSIS < 15 (0-50); Potassium 3.8 mmol/L (3.4-5.1); Sodium 141 mmol/L (137-145); Total Protein 7.4 g/dL (6.3-8.2)
[2021-09-17 05:59] LABS: HCO3 ABG 30 mmol/L (22-26); PCO2 ABG 38.7 mmHg (35-45); PO2 ABG 48 mmHg (80-100); TCO2 ABG 31 mmol/L (21-31)
[2021-09-17 06:00] LABS: Fractionated Inspired Oxygen 90; Oxygen Saturation ABG 87 % (95-100)
--- NOTE | 2021-09-17 07:25 | PC.NURSE ---
0650 09/17/2021 Dr. Herr at bedside. Time Out performed. [address] Herr 0702 200 mg Propofol IVP by Dr. Herr LMA placed by Dr. Herr 0703 Rocuronium 50mg administered by Dr. Herr 0705 LMA removed. 8.0 intubation tube placed by Dr. Herr to 24 cm @ teeth. Bilateral lungs sounds 0715 arterial line placed in L radial by Dr. Herr. Precedex restarted at 0.5 NS at 100 ml/hour carrier.
[2021-09-17] MEDS: propofoL 1,000 MG/100 ML VIAL 13.05 MG IV (07:50)
--- NOTE | 2021-09-17 09:17 | PM.PROC.1 ---
Procedures Date/Time Date of procedure: 09/17/21 Time of procedure: 07:00 Intubation Sedative: other (200mg Propofol) Paralytic: rocuronium (50 mg) Laryngoscope: fiber optic video scope (size #3) ET tube size: 8 Tube secured depth (cm): 24 Tube secured location: other (ETT secured by RT present during intubation.) Tube placement confirmation: confirmation by capnometry Patient tolerated procedure: well and other (BP and HR stable.) Additional comments: I was called to intubate this patient with a decreasing PaO2 with COVID 19 infection.Intubation was technically easy. Sedation was resumed after intubation with Dexmatomadine, same dose as pre procedure.
--- NOTE | 2021-09-17 09:23 | PM.PROC.1 ---
Procedures Date/Time Date of procedure: 09/17/21 Time of procedure: 07:15 Arterial Line Size (Gauge): 20 Technique used: guide wire technique Patient tolerated procedure: Well (Pt still sedated status post intubation. Good radial pulse palpated in the left wrist.) Complications: none Site: left (radial) Additional comments: Sterile prep of left wrist with alcohol prep. a 20 Ga Arrow glidewire catheter was used to cannulate the left radial artery. Catheter advanced over wire into artery easily. First attempt was successful. A good waveform was obtained when coupled with the transducer. BP was 140's over 80's. A Tegaderm sterile dressing was applied and tape used to secure the catheter further.
[2021-09-17] MEDS: DEXAMETHASONE 10 MG/ML VIAL IV (09:30)
[2021-09-17] MEDS: ENOXAPARIN 80 MG/0.8 ML SYRINGE 70 MG SUBCUT ×2 (09:30→20:40)
[2021-09-17] MEDS: FAMOTIDINE 20 MG/2 ML VIAL IV ×2 (09:30→20:39)
--- NOTE | 2021-09-17 09:40 | DI.RAD.S_ITS ---
PROCEDURE: XR CHEST 1V INDICATIONS: Endotracheal tub placement TECHNIQUE: One view of the chest was acquired. COMPARISON: [facility], CR, XR CHEST 1V, 09/16/2021, 2:32. FINDINGS: Surgical changes and devices: Endotracheal tube is seen projecting at the level of the clavicles, approximately 5.8 cm from the sunitha. A feeding tube projects over the course of the right mainstem bronchus. Left approach venous access with tip projecting over the scapula. Lungs and pleura: Bilateral airspace opacities, concerning for pneumonic infiltrates. No pleural effusions or pneumothorax. Mediastinum: The cardiac silhouette is partially obscured but grossly unremarkable. Bones and chest wall: No suspicious bony lesions. Overlying soft tissues appear unremarkable. IMPRESSION: 1. Multifocal pneumonia. 2. Endotracheal tube appears to be in satisfactory position. 3. Feeding tube projected along the course of the right mainstem bronchus, which has been removed per PACS note. Dictated by: Del Kaur M.D. on 09/17/2021 at 11:12 Approved by: Del Kaur M.D. on 09/17/2021 at 11:16
[2021-09-17] MEDS: propofoL 1,000 MG/100 ML VIAL 30.45 MG IV (10:12)
[2021-09-17] MEDS: dexmedeTOMIDine in 0.9 % NaCL 400 MCG/100 ML PLAST..BAG 18.125 MCG IV ×3 (10:13→20:41)
--- NOTE | 2021-09-17 10:27 | CM.DPC ---
DCP Cont: Per MD, due to pt's oxygen needs and sats pt was intubated this morning and per Tele Care Rounds in ICU recommendation was to attempt hospital transfer for pt's need for proning while intubated for best results. correspondence transcriber will begin attempting this to see if any beds available for transfer. Since pt was intubated, correspondence transcriber also walked pt's mom (who is COVID+ with some symptoms) out of the building and informed her that due to her COVID status she cannot return as increases risk of other pts and staff testing positive for COVID and encouraged pt's mom to seek medical attention for herself if her symptoms increase. SW attempted to contact pt's mother again via phone at home and cell phone but home phone was busy and cell phone did not ring through. RN has plan with mom to keep her updated via phone on pt's status and SW will see about talking to mom via phone if she calls into the hospital for medical update on pt. Plan: SW to follow closely for possible hospital transfer for higher level of care for pt and phone assessment with pt's mom if calls will go through to mom's contact numbers. DAMIAN Edwards
[2021-09-17 10:28] LABS: Fractionated Inspired Oxygen 100; HCO3 ABG 30 mmol/L (22-26); Oxygen Saturation ABG 99 % (95-100); PCO2 ABG 47.1 mmHg (35-45); PO2 ABG 154 mmHg (80-100); TCO2 ABG 32 mmol/L (21-31); pH ABG 7.42 (7.35-7.45)
--- NOTE | 2021-09-17 11:20 | PC.NURSE ---
Addendum entered by Lesa Ernandez R.N. 09/17/21 14:45: dobhoff 8.0 inserted successfully thru right nare to 78 cm and secured at nose to allow advancement thru gi tract to 88cm (goal) then turned pt to right to allow peristalsis to carry - will confirm with XR in approx 4 h- decreased propofol to 30mcg/kg and pt with RASS OF -2- REPEAT ABG AT PRESENT Original Note: arrived to pt being intubated at change of shift this am- ETT 8.0, 25CM AT TEETH AND CONFIRMED VIA CXR- THREE ATTEMPTS AT PLACING DOBHOFF FEEDING TUBE VIA NARE AND EACH TIME UNSCUCESSFUL LEADING TO PT COUGHING AND BECOMING AGITATED- AND EVIDENCED TO BE IN BRONCHUS VIA CXR- REMOVED AND ALLOWED TO TO REST AT PRESENT. ARTERIAL LINE TO LEFT WRIST ZERO'D POST ABG DRAWN - TURNED DOWN VENT SETTINGS FROM 100% FIO2 TO 80% FIO2 WITH PLAN TO RECHECK ABG IN 4 HOURS ( 1500) PT TOLERATING WELL WITH SPO2= 97% UPDATE TO MOTHER VIA TELEPHONE, SHE WAS TEARFUL BUT UNDERSTANDING. PLAN IS FOR TRANSFER TO TERTIARY CENTER IF/WHEN BED AVAILABLE
--- NOTE | 2021-09-17 11:28 | PM.PN.EICU ---
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 He was diagnosed on 09/12/21 and has had symtomes for about 1 week prior to that. Pt. started on Decadron, Remdesivir, and Baricitinib. He was placed on HFNC. 09/17/21: Patients hypoxic respiratory failure continued to worsen and this morning he required intubation. His ABG 1 hour post intubation on rate of 16, Vt 500, PEEP 10, and FIO2 of 100% was 7.41/47/154. Fio2 reduced to 80%. Pt's vitals remain stable This patient was seen via real time interactive two-way audiovisual telecommunication. Current Medications Current Medications Medications: Home Medications olanzapine 10 mg tablet 10 mg PO BEDTIME 09/16/21 [History Confirmed 09/16/21] Visit Medications (administered) Generic Name Dose Route Start Last Admin Trade Name Freq PRN Reason Stop Dose Admin Dexamethasone 10 mg 09/17/21 09:00 09/17/21 09:30 Dexamethasone 10 Mg/Ml Vial IV 10 mg DAILY MARLI Administration Enoxaparin Sodium 70 mg 09/16/21 21:00 09/17/21 09:30 Enoxaparin 80 Mg/0.8 Ml Syringe SUBCUT 70 mg BID MARLI Administration Famotidine 20 mg 09/16/21 09:00 09/17/21 09:30 Famotidine 20 Mg/2 Ml Vial IV 20 mg BID MARLI Administration Heparin Sodium (Porcine) 50 unit 09/16/21 21:00 09/16/21 21:02 Heparin Flush (Cl/Picc/Mid-Line) 50 Unit/5 Ml Syringe IV 50 unit BID MARLI Administration dexmedeTOMIDine in 0.9 % NaCL 400 mcg in 100 mls @ 10.875 mls/hr 09/17/21 04:30 09/17/21 10:13 Precedex IV 0.5 mcg/kg/hr TITRATE MARLI 18.125 mls/hr Administration Protocol 0.3 MCG/KG/HR Propofol 1,000 mg in 100 mls @ 4.35 mls/hr 09/17/21 07:15 09/17/21 10:12 Propofol IV 35 mcg/kg/min TITRATE MARLI 30.45 mls/hr Administration Protocol 5 MCG/KG/MIN Olanzapine 10 mg 09/16/21 21:00 09/16/21 21:02 Olanzapine 2.5 Mg Tablet PO 10 mg BEDTIME MARLI Administration Sennosides 17.2 mg 09/16/21 21:00 09/16/21 21:02 Sennosides 8.6 Mg Tablet PO 17.2 mg BEDTIME MARLI Administration Objective Ventilator Parameters: Ventilator Settings FiO2 100 RT Vent Frequency 16 Ventilator Tidal Volume 500 Exhaled Positive End Expiratory 10 Pressure I:E Ratio 1:3:1 Patient Position HOB >= 30 degrees Labs Result Diagrams: 09/16/21 09:15 09/17/21 04:40 Labs: Laboratory Results - last 24 hr 09/16/21 09/17/21 09/17/21 08:00 04:40 05:49 ABG pH 7.50 H ABG pCO2 38.7 ABG pO2 48 L* ABG HCO3 30 H ABG Total CO2 31 ABG O2 Saturation 87 L ABG Base Excess 7.0 H FiO2 90 Sodium 141 Potassium 3.8 Chloride 101 Carbon Dioxide 32 BUN 24 H Creatinine 0.95 Estimated GFR > 60.0 BUN/Creatinine Ratio 25.3 H Glucose 177 H Calcium 8.9 Total Bilirubin 0.9 AST 81 H ALT 69 H Alkaline Phosphatase 74 Total Protein 7.4 Albumin 3.8 Globulin 3.6 Albumin/Globulin Ratio 1.1 Nasal Screen MRSA (PCR) Negative for mrsa 09/17/21 Unknown ABG pH 7.42 ABG pCO2 47.1 H ABG pO2 154 H ABG HCO3 30 H ABG Total CO2 32 H ABG O2 Saturation 99 ABG Base Excess 6.0 H FiO2 100 Sodium Potassium Chloride Carbon Dioxide BUN Creatinine Estimated GFR BUN/Creatinine Ratio Glucose Calcium Total Bilirubin AST ALT Alkaline Phosphatase Total Protein Albumin Globulin Albumin/Globulin Ratio Nasal Screen MRSA (PCR) Exam Vital Signs (past 8 hours): - 09/17/21 03:30 09/17/21 04:00 09/17/21 04:30 Temperature Pulse Rate 89 77 79 Respiratory Rate 52 H 36 H 39 H Blood Pressure Pulse Oximetry 95 94 94 09/17/21 04:40 09/17/21 04:43 09/17/21 05:00 Temperature 98.7 F Pulse Rate 85 86 87 Respiratory Rate 31 H 32 H 34 H Blood Pressure 124/73 124/73 Pulse Oximetry 95 93 94 09/17/21 05:30 09/17/21 06:00 09/17/21 06:30 Temperature Pulse Rate 79 64 54 L Respiratory Rate 37 H 32 H 31 H Blood Pressure Pulse Oximetry 92 90 L 95 09/17/21 07:00 09/17/21 07:05 09/17/21 07:30 Temperature Pulse Rate 53 L 53 L 82 Respiratory Rate 30 H 30 H 32 H Blood Pressure Pulse Oximetry 93 95 09/17/21 07:42 09/17/21 07:55 09/17/21 08:00 Temperature 98.4 F Pulse Rate 85 80 78 Respiratory Rate 43 H 16 29 H Blood Pressure 111/61 123/60 Pulse Oximetry 91 92 91 09/17/21 08:03 09/17/21 08:08 09/17/21 08:15 Temperature Pulse Rate 73 70 57 L Respiratory Rate 42 H 16 16 Blood Pressure 95/60 126/65 134/71 Pulse Oximetry 88 L 94 95 09/17/21 08:30 Temperature Pulse Rate 57 L Respiratory Rate 17 Blood Pressure Pulse Oximetry 97 Fraction of Inspired Oxygen 90 Oxygen Delivery Method Mechanical Ventilation Oxygen Flow Rate 60 Quality TeleICU VTE Deep Vein Thrombosis/Pulmonary Embolism Present on Admission: No Assessment & Plan Assessment & Plan narrative: Assessment -COVID PNA -Acute hypoxic respiratory failure -Developmental Delay -Schizophrenia Plan -continue Decadron, Remdesivir, and Baricitinib -titrate propofol and precedex drip as needed for vent synchorny -monitor serial abgs and wean down FIo2 as tolerated -if patient's vent requirements remain high, then consider transferring patient to another hospital with capabilities for proning, inhaled nitric oxide, or inhaled Flolan. CC time spent 45 minutes Time Spent With Patient Critical Care time: I spent a total of [] minutes of critical care time on this patient's care today; this time is exclusive of procedural time.
[2021-09-17] MEDS: REMDESIVIR 100 MG in SODIUM CHLORIDE 0.9% 230 ML 250 ML IV (11:46)
[2021-09-17] MEDS: propofoL 1,000 MG/100 ML VIAL 26.1 MG IV ×3 (13:14→20:42)
[2021-09-17 15:16] LABS: Fractionated Inspired Oxygen 80; HCO3 ABG 30 mmol/L (22-26); Oxygen Saturation ABG 98 % (95-100); PCO2 ABG 45.2 mmHg (35-45); PO2 ABG 103 mmHg (80-100); TCO2 ABG 32 mmol/L (21-31); pH ABG 7.43 (7.35-7.45)
--- NOTE | 2021-09-17 15:26 | PM.PN.1 ---
Subjective Subjective Date Patient Seen: 09/17/21 Exam Vital Signs (past 8 hours): - 09/17/21 07:30 09/17/21 07:42 09/17/21 07:55 Temperature 98.4 F Pulse Rate 82 85 80 Respiratory Rate 32 H 43 H 16 Blood Pressure 111/61 123/60 Pulse Oximetry 95 91 92 09/17/21 08:00 09/17/21 08:03 09/17/21 08:08 Temperature Pulse Rate 78 73 70 Respiratory Rate 29 H 42 H 16 Blood Pressure 95/60 126/65 Pulse Oximetry 91 88 L 94 09/17/21 08:15 09/17/21 08:30 09/17/21 10:50 Temperature Pulse Rate 57 L 57 L Respiratory Rate 16 17 Blood Pressure 134/71 Pulse Oximetry 95 97 95 09/17/21 12:42 09/17/21 13:00 09/17/21 13:30 Temperature 98.2 F Pulse Rate 50 L 47 L 45 L Respiratory Rate 16 16 17 Blood Pressure 123/69 122/64 122/64 Pulse Oximetry 96 97 96 09/17/21 14:00 Temperature Pulse Rate 46 L Respiratory Rate 17 Blood Pressure 122/63 Pulse Oximetry 97 Fraction of Inspired Oxygen 80 Oxygen Delivery Method Mechanical Ventilation Oxygen Flow Rate 60 Objective Labs Result Diagrams: 09/16/21 09:15 09/17/21 04:40 Labs: Laboratory Results - last 24 hr 09/17/21 09/17/21 09/17/21 04:40 05:49 10:06 ABG pH 7.50 H 7.42 ABG pCO2 38.7 47.1 H ABG pO2 48 L* 154 H ABG HCO3 30 H 30 H ABG Total CO2 31 32 H ABG O2 Saturation 87 L 99 ABG Base Excess 7.0 H 6.0 H FiO2 90 100 Sodium 141 Potassium 3.8 Chloride 101 Carbon Dioxide 32 BUN 24 H Creatinine 0.95 Estimated GFR > 60.0 BUN/Creatinine Ratio 25.3 H Glucose 177 H Calcium 8.9 Total Bilirubin 0.9 AST 81 H ALT 69 H Alkaline Phosphatase 74 Total Protein 7.4 Albumin 3.8 Globulin 3.6 Albumin/Globulin Ratio 1.1 09/17/21 14:56 ABG pH 7.43 ABG pCO2 45.2 H ABG pO2 103 H ABG HCO3 30 H ABG Total CO2 32 H ABG O2 Saturation 98 ABG Base Excess 6.0 H FiO2 80 Sodium Potassium Chloride Carbon Dioxide BUN Creatinine Estimated GFR BUN/Creatinine Ratio Glucose Calcium Total Bilirubin AST ALT Alkaline Phosphatase Total Protein Albumin Globulin Albumin/Globulin Ratio PFSH Medical History (Updated 09/17/21 @ 07:05 by TAHMINA Carey) Cognitive developmental delay COVID-19 Schizophrenia Surgical History (Updated 09/16/21 @ 03:42 by Ayana Oneill MD) No significant past surgical history Family History (Updated 09/16/21 @ 03:43 by Ayana Oneill MD) Mother Diabetes mellitus Father Drug use Social History household members: family caregiver/support person: Yes Smoking Status: Never smoker alcohol intake: never Assessment & Plan Time Spent With Patient Critical Care time: I spent a total of [] minutes of critical care time on this patient's care today; this time is exclusive of procedural time. Quality VTE Deep Vein Thrombosis/Pulmonary Embolism Present on Admission: No
--- NOTE | 2021-09-17 17:11 | PM.PN.1 ---
Subjective Subjective Date Patient Seen: 09/17/21 Interval history: The patient is a 36-year-old male who was admitted to the hospital yesterday with acute hypoxic respiratory failure secondary to COVID pneumonia. The patient was tachypneic with a rate of 40 most of the day. He was electively intubated early this morning for progressive respiratory failure. His FiO2 has been tapered to 80%. Recommendations have been made by the tele ICU to transfer to a tertiary care facility who can manage pronating and intubation in COVID patients. Exam Vital Signs (past 8 hours): - 09/17/21 10:50 09/17/21 12:42 09/17/21 13:00 Temperature 98.2 F Pulse Rate 50 L 47 L Respiratory Rate 16 16 Blood Pressure 123/69 122/64 Pulse Oximetry 95 96 97 09/17/21 13:30 09/17/21 14:00 09/17/21 15:00 Temperature Pulse Rate 45 L 46 L 50 L Respiratory Rate 17 17 17 Blood Pressure 122/64 122/63 Pulse Oximetry 96 97 97 09/17/21 15:55 09/17/21 16:00 Temperature Pulse Rate 53 L 53 L Respiratory Rate 18 17 Blood Pressure 91/50 L 93/55 L Pulse Oximetry 94 94 Fraction of Inspired Oxygen 80 Oxygen Delivery Method Mechanical Ventilation Oxygen Flow Rate 60 Narrative Exam Narrative: Calm, sedated male lying in bed [facility] Other: Normocephalic atraumatic, the patient is intubated Eyes Other: Eyes are closed Resp Other: Decreased breath sounds bilaterally Cardio Other: Cardiac exam: Regular rate rhythm normal S1-S2 GI Other: Abdomen: Soft nontender nondistended Extrem Other: Extremities: No edema Objective Labs Result Diagrams: 09/16/21 09:15 09/17/21 04:40 Labs: Laboratory Results - last 24 hr 09/17/21 09/17/21 09/17/21 04:40 05:49 10:06 ABG pH 7.50 H 7.42 ABG pCO2 38.7 47.1 H ABG pO2 48 L* 154 H ABG HCO3 30 H 30 H ABG Total CO2 31 32 H ABG O2 Saturation 87 L 99 ABG Base Excess 7.0 H 6.0 H FiO2 90 100 Sodium 141 Potassium 3.8 Chloride 101 Carbon Dioxide 32 BUN 24 H Creatinine 0.95 Estimated GFR > 60.0 BUN/Creatinine Ratio 25.3 H Glucose 177 H Calcium 8.9 Total Bilirubin 0.9 AST 81 H ALT 69 H Alkaline Phosphatase 74 Total Protein 7.4 Albumin 3.8 Globulin 3.6 Albumin/Globulin Ratio 1.1 09/17/21 14:56 ABG pH 7.43 ABG pCO2 45.2 H ABG pO2 103 H ABG HCO3 30 H ABG Total CO2 32 H ABG O2 Saturation 98 ABG Base Excess 6.0 H FiO2 80 Sodium Potassium Chloride Carbon Dioxide BUN Creatinine Estimated GFR BUN/Creatinine Ratio Glucose Calcium Total Bilirubin AST ALT Alkaline Phosphatase Total Protein Albumin Globulin Albumin/Globulin Ratio [facility] Medical History (Updated 09/17/21 @ 07:05 by TAHMINA Carey) Cognitive developmental delay COVID-19 Schizophrenia Surgical History (Updated 09/16/21 @ 03:42 by Ayana Oneill MD) No significant past surgical history Family History (Updated 09/16/21 @ 03:43 by Ayana Oneill MD) Mother Diabetes mellitus Father Drug use Social History household members: family caregiver/support person: Yes Smoking Status: Never smoker alcohol intake: never Assessment & Plan Assessment & Plan narrative: This is a 36 year old male with Developmental Delay and Schizophrenia 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 Covid Pneumonia, present on admission.? Active. -admitted with hypoxia requiring HFNC oxygen at 70% and 60 L -CXR with bilateral viral infiltrates.? WBC 8.4.? Procalcitonin pending on admission. -Started on Remdesivir, Dexamethasone IV in the ED on 09/16 -Full Code -Lovenox for DVT prevention -Isolation -Patient intubated this morning, will d/c remedesivr as not recommended in intubated patients -continue baricitnib -continue to work on transfer to higher level of care -lasix per Dr. Aceves ( [facility]) Hypoxic Respiratory Failure, present on admission.? Active. -Covid Pneumonia - see above -Oxygen by HFNC to keep sat at 90% -Consult teleintensivist -now intubated Schizophrenia, present on admission.? Chronic and Stable. -Continue Olanzapine [address] dobhoff for oral meds and feeding Developmental Delay, present on admission.? Chronic and Stable -limited communication ability -mother is his decision maker and has a milder Covid respiratory infection herself DVT prophylaxis-Lovenox I have utilized all available resources to update, review, and confirm current medications. Time Spent With Patient Critical Care time: I spent a total of [] minutes of critical care time on this patient's care today; this time is exclusive of procedural time. Quality VTE Deep Vein Thrombosis/Pulmonary Embolism Present on Admission: No
[2021-09-17 17:49] LABS: PCO2 ABG 43.4 mmHg (35-45); pH ABG 7.47 (7.35-7.45)
[2021-09-17 17:50] LABS: HCO3 ABG 31 mmol/L (22-26); Oxygen Saturation ABG 97 % (95-100); PO2 ABG 88 mmHg (80-100); TCO2 ABG 33 mmol/L (21-31)
[2021-09-17 17:51] LABS: Fractionated Inspired Oxygen 70
--- NOTE | 2021-09-17 18:38 | PM.DS.1 ---
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 He has no history of Asthma or COPD. He is unvaccinated and had been relying on isolation at home with his mother for prevention but did go shopping at the grocery store recently with his mother.? They both became ill at the same time and were tested positive on 09/12.? He has had a fever, lack of appetite and increasing shortness of breath with exertion.? His mother brought him in today because he was now extremely short of breath when moving around in their house.? She has diabetes herself but is not nearly as ill as he is.? His CXR shows classic severe bilateral viral pneumonia infiltrates.? His WBC is 8.4 and his Procalcitonin is pending.? His temperature is 103.2 and his RR is 43 with a HR of 115. Discharge Providers Provider Date of admission: 09/16/21 03:01 Discharge Date: 09/17/21 Primary care physician: Eric Davis MD Consults: 09/16/21 03:34 Consult to Tele-application defense manager Routine Comment: Consulting Provider: [employer] Tele-intensivists Reason for consultation: Forestry Biology Specialist services Has provider been notified: No Discharge provider: Georgie Salgado MD Summary Hospital Course Discharge Diagnosis: 1. Acute hypoxic respiratory failure secondary to COVID pneumonia 2. Developmental delay 3. Schizophrenia Hospital Course: Patient was admitted to the hospital for acute respiratory failure secondary to COVID pneumonia. He was treated with remdesivir, and dexamethasone. Patient was placed on DVT prophylaxis. He was transitioned to high-flow nasal cannula. He remained tachypneic. After consultation with the tele ICU they recommended elective intubation. The patient required an FiO2 of 100% initially which was tapered to 80%. He was on 10 of PEEP with a tidal volume of 500. As we are unable to prone or effectively manage COVID patient is intubated plans were made to transfer him to a higher level of care. The patient's mother is his durable power of forensic science technician. She unfortunately is symptomatic and sick with COVID pneumonia as well. Patient has been intubated. He is on propofol for sedation. He developed some bradycardia with heart rate of 45. His blood pressure has been well controlled. There has been no evidence of hypotension. He has had no renal failure. The patient was kindly accepted by [facility] application defense manager for management of his respiratory failure. Patient will be transferred to [facility] for higher level care. Status at Discharge Cognitive/behavioral status at discharge: at baseline, confused Functional status at discharge: bed bound Overall status at discharge: patient is not back to baseline Time Spent with Patient Time spent: Greater than 30 minutes Exam Vital Signs (past 8 hours): - 09/17/21 10:50 09/17/21 12:42 09/17/21 13:00 Temperature 98.2 F Pulse Rate 50 L 47 L Respiratory Rate 16 16 Blood Pressure 123/69 122/64 Pulse Oximetry 95 96 97 09/17/21 13:30 09/17/21 14:00 09/17/21 15:00 Temperature Pulse Rate 45 L 46 L 50 L Respiratory Rate 17 17 17 Blood Pressure 122/64 122/63 Pulse Oximetry 96 97 97 09/17/21 15:55 09/17/21 16:00 09/17/21 17:00 Temperature Pulse Rate 53 L 53 L 56 L Respiratory Rate 18 17 18 Blood Pressure 91/50 L 93/55 L 86/48 L Pulse Oximetry 94 94 95 09/17/21 17:08 09/17/21 17:31 09/17/21 18:00 Temperature Pulse Rate 59 L 60 57 L Respiratory Rate 18 18 18 Blood Pressure 84/46 L 121/72 114/73 Pulse Oximetry 95 95 95 Fraction of Inspired Oxygen 80 Oxygen Delivery Method Mechanical Ventilation Oxygen Flow Rate 60 Narrative Exam Narrative: Sedated ill-appearing male lying in bed, intubated [facility] Other: Normocephalic atraumatic, patient is intubated Resp Other: Lungs decreased breath sounds bilaterally Cardio Other: Cardiac exam: Regular rate and rhythm normal S1-S2 GI Other: Abdomen: Soft and nontender Skin Other: Extremities: No edema Objective Labs Result Diagrams: 09/16/21 09:15 09/17/21 04:40 Labs: Laboratory Results - last 24 hr 09/17/21 09/17/21 09/17/21 04:40 05:49 10:06 ABG pH 7.50 H 7.42 ABG pCO2 38.7 47.1 H ABG pO2 48 L* 154 H ABG HCO3 30 H 30 H ABG Total CO2 31 32 H ABG O2 Saturation 87 L 99 ABG Base Excess 7.0 H 6.0 H FiO2 90 100 Sodium 141 Potassium 3.8 Chloride 101 Carbon Dioxide 32 BUN 24 H Creatinine 0.95 Estimated GFR > 60.0 BUN/Creatinine Ratio 25.3 H Glucose 177 H Calcium 8.9 Total Bilirubin 0.9 AST 81 H ALT 69 H Alkaline Phosphatase 74 Total Protein 7.4 Albumin 3.8 Globulin 3.6 Albumin/Globulin Ratio 1.1 09/17/21 09/17/21 14:56 17:38 ABG pH 7.43 7.47 H ABG pCO2 45.2 H 43.4 ABG pO2 103 H 88 ABG HCO3 30 H 31 H ABG Total CO2 32 H 33 H ABG O2 Saturation 98 97 ABG Base Excess 6.0 H 7.0 H FiO2 80 70 Sodium Potassium Chloride Carbon Dioxide BUN Creatinine Estimated GFR BUN/Creatinine Ratio Glucose Calcium Total Bilirubin AST ALT Alkaline Phosphatase Total Protein Albumin Globulin Albumin/Globulin Ratio [facility] Medical History (Updated 09/17/21 @ 07:05 by TAHMINA Caery) Cognitive developmental delay COVID-19 Schizophrenia Surgical History (Updated 09/16/21 @ 03:42 by Ayana Oneill MD) No significant past surgical history Family History (Updated 09/16/21 @ 03:43 by Ayana Oneill MD) Mother Diabetes mellitus Father Drug use Social History household members: family caregiver/support person: Yes Smoking Status: Never smoker alcohol intake: never Discharge Assessment & Plan Assessment and Plan Assessment: 1. Acute hypoxic respiratory failure secondary to COVID pneumonia 2. Developmental delay 3. Schizophrenia Plan of Treatment: Transfer to [facility] for higher level of care Discharge Plan Discharge Plan Disposition: [facility] Discharge orders & Medications Follow up/Referrals: Eric Davis MD [Primary Care Provider] - Discharge Health Status Multidrug resistant organism: No MDRO Precautions: Airborne Diet/Activity/Treatments Diet: Tube Feeding Diet comment: needs dobhoff placed for tube feeding Activity: bed rest Oxygen: Fi02 80%, 10 PEEP, Tidal Volume 500 cc Discharge Data Primary Care Provider: Eric Davis Quality VTE Deep Vein Thrombosis/Pulmonary Embolism Present on Admission: No
[2021-09-17 19:59] LABS: Procalcitonin 0.63 ng/mL (<0.5)
--- NOTE | 2021-09-17 20:13 | PM.ICURNDS ---
- :: This patient was seen via real time interactive two-way audiovisual telecommunication. Note: A/P 36 yo covid unvaccinated man with Developmental Delay, and Schizophrenia admitted 09/16/15 with COVID PNA, acute hypoxic respiratory failure, and ARDS. Patient required intubation today. His vent requirements are high and therefore request was made for transfer to higher level of care hospital. Patient currently on AC RR 16 Vt 500 PEEP 12 and FIO2 70% with ABG 7.47/43/88 and pox 95-96%. BP stable. Patient has been accepted for transfer to higher level of care hospital in case patient's acute hypoxic respiratory failure worsens and he requires proning and or inhaled nitric oxide or inhaled Flolan. Transport is currently on hold due to harsh weather conditions. CCT spent 25 min
[2021-09-17] MEDS: SODIUM CHLORIDE 0.9% FLUSH 10 ML IV (20:40)
--- NOTE | 2021-09-17 21:55 | PC.NURSE ---
Addendum entered by Barbara Winston R.N. 09/17/21 22:01: Patient belongings sent with transport. Original Note: [facility] Gave report to nurse, Arnie. Patient transported on vent, propofol, and precedex. Marshall, midline, arterial line, and PIV x1 in place. Mother, Maia, updated. Patient departed at approximately 2140 without complication.
== END 2021-09-17 21:45 | disposition short-term general hospital (02) | DRG 208 ==
LOC: ED 02:08 → ICU 08:24 → AC 09-17 09:23 → ICU 09-17 09:23
PROVIDERS: Internal Medicine; Nurse Practitioner Family; Admitting Provider Family Medicine; Emergency Provider Emergency Medicine; Family Provider Internal Medicine; PCP Internal Medicine; Referring Provider Emergency Medicine; Visit Provider Family Medicine
DX: U07.1 COVID-19 (principal); J12.82 Pneumonia due to coronavirus disease 2019; J96.01 Acute respiratory failure with hypoxia; B17.9 Acute viral hepatitis, unspecified; F20.89 Other schizophrenia; R62.50 Unspecified lack of expected normal physiological development in childhood; R00.1 Bradycardia, unspecified
CPT/HCPCS: 36415; 36569; 36600; 71045; 80053; 82550; 82553; 82728; 82805; 82962; 83605; 83615; 83880; 84145; 84484; 85025; 85379; 86140; 87040; 87070; 87107; 87205; 87797; 93005; 94002; 94799; 96361; 96365; 96375; 99285; 99291; 99292; J1100; J1642; J1650; J1940; J2270; J2704

== ENCOUNTER → 2022-08-24 18:52 | Outpatient (CLI) | payer MEDICARE, MEDICAID, SELFPAY ==
[2021-09-16 04:00] VITALS: BMI 42.1
[2021-09-17 16:50] VITALS: RESP 16
[2021-09-17 19:46] VITALS: PULSE 56; RESP 18; O2SAT 96
[2022-08-24 19:58] LABS: COVID19 -Nasal RAPID POSITIVE (Negative)
== END ==
PROVIDERS: Family Provider Internal Medicine; PCP Internal Medicine; Visit Provider Nurse Practitioner Critical Care Medicine
DX: U07.1 COVID-19 (principal)
CPT/HCPCS: 87635

== ENCOUNTER → 2022-09-13 12:13 | Outpatient (CLI) | payer MEDICARE, MEDICAID, SELFPAY ==
[2021-09-16 04:00] VITALS: BMI 42.1
[2021-09-17 16:50] VITALS: RESP 16
[2021-09-17 19:46] VITALS: PULSE 56; RESP 18; O2SAT 96
[2022-09-13 12:30] LABS: Hematocrit 41.5 % (41-53); Hemoglobin 13.4 g/dL (13.5-17.5); Mean Corpuscular HGB Conc 32.3 % (30-36); Mean Corpuscular Hemoglobin 27.3 PG (26-34); Mean Corpuscular Volume 84.4 fL (80-100); Platelet Count 351 X10^3/uL (150-400); Red Blood Cell Count 4.92 X10^6/uL (4.5-5.9); Red Cell Distribution Width 13.9 % (11.6-14.8); White Blood Cell Count 8.5 X10^3/uL (4.5-11.0)
[2022-09-13 12:54] LABS: Alanine Aminotransferase 49 IU/L (<50); Albumin 4.3 g/dL (3.5-5.0); Albumin Globulin Ratio 1.1 (1.0-2.8); Alkaline Phosphatase 109 U/L (38-126); Aspartate Aminotransferase 33 IU/L (17-59); BUN Creatinine Ratio 10.6 (6-22); Bilirubin Total 0.8 mg/dL (0.2-1.3); Blood Urea Nitrogen 11 mg/dL (9-20); Calcium 9.3 mg/dL (8.4-10.2); Carbon Dioxide 30 mmol/L (22-32); Chloride 102 mmol/L (98-107); Cholesterol 216 mg/dL (140-199); Estimated Glomerular Filt Rate > 60 mL/min (>60); Globulin 3.8 g/dL (1.7-4.1); Glucose 107 mg/dL (70-100); HDL Cholesterol 29 mg/dL (40-60); HEMOLYSIS < 15 (0-50); LDL Cholesterol Calculated 153 mg/dL (<100); Potassium 4.2 mmol/L (3.4-5.1); Sodium 142 mmol/L (137-145); Total Protein 8.1 g/dL (6.3-8.2); Triglycerides 171 mg/dL (35-150)
[2022-09-13 13:20] LABS: TSH w/ Reflex to FT4 2.27 uIU/mL (0.47-4.68)
== END ==
PROVIDERS: Family Provider Internal Medicine; PCP Internal Medicine; Referring Provider Internal Medicine; Visit Provider Internal Medicine
DX: F20.9 Schizophrenia, unspecified (principal); I10 Essential (primary) hypertension
CPT/HCPCS: 36415; 80053; 80061; 84443; 85027

== ENCOUNTER 2022-10-05 07:38 | Emergency (ER) | payer MEDICARE, MEDICAID, SELFPAY ==
[2021-09-16 04:00] VITALS: BMI 42.1
[2021-09-17 16:50] VITALS: RESP 16
[2021-09-17 19:46] VITALS: PULSE 56; RESP 18; O2SAT 96
[2022-10-05 07:53] VITALS: BP 131/66; PULSE 78; RESP 18; TEMP 36.9; O2SAT 100; BMI 45.9
--- NOTE | 2022-10-05 08:06 | DI.RAD.S_ITS ---
PROCEDURE: XR ANKLE RT MIN 3V INDICATIONS: trauma TECHNIQUE: 3 views of the ankle were acquired. COMPARISON: [facility], , XR FOOT RT MIN 3V, 10/05/2022, 8:11. FINDINGS: Bones: No fractures or dislocations. Ankle mortise is normally aligned. No suspicious bony lesions. The talar dome demonstrates no warner abnormality. Soft tissues: No tibiotalar joint effusion. Achilles tendon appears normal. IMPRESSION: No significant plain film abnormality is identified. Dictated by: Jacques Haji M.D. on 10/05/2022 at 7:35 Approved by: Jacques Haji M.D. on 10/05/2022 at 7:35
--- NOTE | 2022-10-05 08:06 | ED_ITS ---
HPI - General Adult General Chief complaint: Extremity Injury, Lower Stated complaint: fell against the shower wall RT ankle swelling Time Seen by Provider: 10/05/22 07:50 Source: patient and family Mode of arrival: Ambulatory History of Present Illness HPI narrative: 37-year-old gentleman with developmental delay lives with his mother presents complaining of right foot and ankle pain after a slip in the shower last night. He did not actually fall but somehow injured his foot and ankle. Because of his developmental delay communication is a bit challenging and the area of pain he indicates is the posterior part of the heel, the Achilles and the plantar fascia. There is no abrasion or contusion. His mom specifically requests an x- ray as he does have some challenges with pain receptor difficulties and sometimes can have injuries more severe than his clinical exam would suggest. He has recently had no fevers, cough, chills, vomiting, diarrhea, abdominal pain, constipation, headaches, lower extremity edema. Related Data Previous Rx's Medication Instructions Recorded olanzapine 10 mg tablet 10 mg PO BEDTIME #90 tabs 03/14/22 Allergies Allergy/AdvReac Type Severity Reaction Status Date / Time No Known Drug Allergies Allergy Verified 09/13/22 10:28 Review of Systems Review of Systems Narrative: Remainder of complete review of systems is otherwise unremarkable except for that included in the HPI. Patient History Medical History Cognitive developmental delay COVID-19 (~08/2021) COVID-19 virus infection Developmental delay, moderate Essential hypertension Schizophrenia Severe obesity Surgical History No significant past surgical history Family History Mother Diabetes mellitus Hyperlipidemia Hypertension Mental health problem Father Drug use Social History household members: family caregiver/support person: Yes Smoking Status: Never smoker alcohol intake: never Smoking Status: Never smoker Substance Use Type: does not use Exam Initial Vital Signs Initial Vital Signs: Vital Signs Temperature 98.4 F 10/05/22 07:53 Pulse Rate 78 10/05/22 07:53 Respiratory Rate 18 10/05/22 07:53 Blood Pressure 131/66 10/05/22 07:53 Pulse Oximetry 100 10/05/22 07:53 Oxygen Delivery Method 10/05/22 07:53 General: Alert appropriate in no acute distress Respiratory: Able to speak in full sentences, no obvious respiratory distress Skin: No obvious rashes, warm and dry Neurologic: Grossly intact no obvious asymmetries or abnormalities Psych: appropriate insight and affect, cooperative Extremity: Tenderness posterior portion of the right heel without any step-off at the Achilles tendon. No obvious Achilles or soleus rupture. Minor tenderness along the plantar surface without tenderness over the malleoli or the metatarsals. Procedures Orthopedic Splinting/Casting left foot and ankle: Time of procedure: 09:12 Side: left Lower Extremity Injury Location: ankle and foot Lower Extremity Immobilizer: Nolberto wrap Post splinting neuro exam: intact Post splinting vascular exam: intact Placed by: Provider Course Orders Ordered: ED Orders 10/05/22 08:06 XR ankle LT min 3V Stat XR foot RT min 3V Stat Discontinued Medications Acetaminophen (Acetaminophen 325 Mg Tablet) 325 mg PO NOW ONE Stop: 10/05/22 09:07 Ibuprofen (Ibuprofen 400 Mg Tablet) 400 mg PO NOW ONE Stop: 10/05/22 09:07 Vital Signs Vital signs: Vital Signs - 8 hr 10/05/22 07:53 Temperature 98.4 F Pulse Rate 78 Respiratory Rate 18 Blood Pressure 131/66 Pulse Oximetry 100 Oxygen Delivery Method Room Air Medical Decision Making Imaging Data XR ankle and foot: Radiologist's Impression: Ankle: FINDINGS:? ? Bones:? No fractures or dislocations.? Ankle mortise is normally aligned.? No suspicious bony lesions.? The talar dome demonstrates no warner abnormality.? ? Soft tissues:? No tibiotalar joint effusion.? Achilles tendon appears normal.? ? ? IMPRESSION:? No significant plain film abnormality is identified. ? Dictated by: Jacques Haji M.D. on 10/05/2022 at 7:35 ? ? Foot: FINDINGS:? ? Bones:? No fractures or dislocations.? No suspicious bony lesions.? Incidental note is made of an accessory ossicle, an os peroneum.? A prominent posterior medial process of the talus is seen, which projects posteriorly.? Toe alignment abnormalities are seen.? ? Soft tissues:? No tibiotalar joint effusion.? Achilles tendon appears normal.? ? ? IMPRESSION:? No acute plain film abnormality is seen. ? ? Dictated by: Jacques Haji M.D. on 10/05/2022 at 7:33 ? ? MDM Narrative Medical decision making narrative: 37-year-old gentleman who injured his foot and ankle in the shower last night. No evidence of acute bony injury. Minimal swelling. He is given ibuprofen and Tylenol for pain control as well as anticipatory guidance. An Nolberto wrap is applied for comfort and he is safe for discharge home Discharge Plan Departure Patient Disposition: Home Clinical Impression: Acute foot pain Qualifiers: Laterality: right Qualified Code(s): M79.671 - Pain in right foot Ankle sprain Qualifiers: Encounter type: initial encounter Instructions: DI for Ankle Sprain Activity Restrictions/Additional Instructions: Thank you for coming in today The foot and ankle x-rays are unremarkable. There is no evidence of any broken bones. Clearly you have injured your foot and ankle. I have given you an Nolberto wrap to help with comfort. This can be used as long as it is helping. Keeping the foot elevated, icing the ankle and using 400 mg of ibuprofen (2 [id number] pills) and 1 Tylenol every 6 hours can be very helpful in controlling pain. If you find that symptoms are persisting or worsening, I would recommend follow- up with your primary care provider or Orthopedics. If you have worsening symptoms, please feel free to come to the ER Prescriptions: No Action olanzapine 10 mg tablet 10 mg PO BEDTIME Qty: 90 3RF Referrals: Landry Carrillo MD [Primary Care Provider] -
--- NOTE | 2022-10-05 08:06 | DI.RAD.S_ITS ---
PROCEDURE: XR FOOT RT MIN 3V INDICATIONS: trauma TECHNIQUE: 3 views of the foot were acquired. COMPARISON: [facility], CR, XR ANKLE RT MIN 3V, 10/05/2022, 8:11. FINDINGS: Bones: No fractures or dislocations. No suspicious bony lesions. Incidental note is made of an accessory ossicle, an os peroneum. A prominent posterior medial process of the talus is seen, which projects posteriorly. Toe alignment abnormalities are seen. Soft tissues: No tibiotalar joint effusion. Achilles tendon appears normal. IMPRESSION: No acute plain film abnormality is seen. Dictated by: Jacques Haji M.D. on 10/05/2022 at 7:33 Approved by: Jacques Haji M.D. on 10/05/2022 at 7:34
[2022-10-05] MEDS: ACETAMINOPHEN 325 MG TABLET PO (09:18)
[2022-10-05] MEDS: IBUPROFEN 400 MG TABLET PO (09:18)
[2022-10-05 09:23] VITALS: BP 130/70; PULSE 84; RESP 18; O2SAT 98
== END 2022-10-05 09:23 | disposition home or self-care (01) ==
PROVIDERS: Emergency Provider Emergency Medicine; Family Provider Internal Medicine; PCP Internal Medicine
DX: S93.401A Sprain of unspecified ligament of right ankle, initial encounter (principal); M79.671 Pain in right foot; W18.30XA Fall on same level, unspecified, initial encounter
CPT/HCPCS: 73610; 73630; 99283

== ENCOUNTER 2022-11-18 11:54 | Emergency (ER) | payer MEDICARE, MEDICAID, SELFPAY ==
[2021-09-16 04:00] VITALS: BMI 42.1
[2021-09-17 16:50] VITALS: RESP 16
[2021-09-17 19:46] VITALS: PULSE 56; RESP 18; O2SAT 96
[2022-11-18 11:59] VITALS: BP 124/60; PULSE 81; RESP 14; TEMP 36.2; O2SAT 96; BMI 39.1
--- NOTE | 2022-11-18 12:05 | DI.RAD.S_ITS ---
PROCEDURE: XR CHEST 2V INDICATIONS: cough, fever, h/o pneumonia requiring vent TECHNIQUE: 2 views of the chest were acquired. COMPARISON: [facility], CR, XR CHEST 1V, 09/17/2021, 10:24. FINDINGS: Surgical changes and devices: None. Lungs and pleura: An incomplete inspiratory result is noted, causing a crowded appearance to the lung markings. No focal infiltrates are seen. No pneumothorax or significant pleural effusions are seen. Mediastinum: Mediastinal contours are normal. Heart size is normal. Bones and chest wall: No suspicious bony abnormalities. Soft tissues appear unremarkable. IMPRESSION: Lung volumes, without an acute abnormality seen by plain film. Dictated by: Jacques Haji M.D. on 11/18/2022 at 11:28 Approved by: Jacques Haji M.D. on 11/18/2022 at 11:28
[2022-11-18 12:57] LABS: COVID-19 CEPHEID 4-PLEX PCR Negative (Negative); Influenza A - CEPHEID Flu A POSITIVE (NEGATIVE); Influenza B - CEPHEID Flu B NEGATIVE (NEGATIVE); Respiratory Syncytial Virus Negative (Negative)
--- NOTE | 2022-11-18 15:46 | ED_ITS ---
HPI - URI/Sore Throat <Mahad Mclaughlin PA-C - Last Filed: 11/18/22 15:51> General Chief Complaint: Upper Respiratory Symptoms Stated Complaint: fever/cough/body pain Time Seen by Provider: 11/18/22 15:21 Source: patient Mode of arrival: Ambulatory History of Present Illness HPI Narrative: 37-year-old male with past medical history schizophrenia, developmental delay, essential hypertension presents to the ED with 2 days of fever, cough. Patient denies chills, chest pain, shortness of breath, nausea, vomiting, abdominal pain, dysuria, lightheadedness, dizziness, syncope. Patient does endorse a runny nose and cough. Patient comes in with his mother today, mother was concerned since he had developed pneumonia with COVID in the past. Related Data Previous Rx's Medication Instructions Recorded olanzapine 10 mg tablet 10 mg PO BEDTIME #90 tabs 03/14/22 Allergies Allergy/AdvReac Type Severity Reaction Status Date / Time No Known Drug Allergies Allergy Verified 09/13/22 10:28 Review of Systems <Mahad Mclaughlin PA-C - Last Filed: 11/18/22 15:51> Review of Systems ROS Unobtainable: All systems reviewed & are unremarkable except as noted in HPI and below Constitutional Constitutional: Reports body ache(s), Denies chills, Denies fatigue, Reports fever(s), Denies frequent falls, Denies lethargy and Denies weakness Eyes Eyes: Denies change in vision, Denies eye discharge, Denies irritation and Denies loss of vision ENT Ears, Nose, Mouth, and Throat: Denies change in voice, Denies dizziness, Denies neck pain, Denies sore throat and Denies throat swelling Cardiovascular Cardiovascular: Reports chest pain, Denies irregular heart rhythm, Denies lightheadedness, Denies palpitations, Denies dyspnea, Denies dyspnea on exertion and Denies orthopnea Respiratory Respiratory: Reports cough, Denies dyspnea, Denies dyspnea on exertion and Denies wheezing Gastrointestinal Gastrointestinal: Denies abdominal pain, Denies change in bowel habits, Denies diarrhea, Denies nausea and Denies vomiting Genitourinary Genitourinary: Denies hematuria, Denies flank pain, Denies urinary incontinence and Denies urinary urgency Musculoskeletal Musculoskeletal: Denies back pain, Denies muscle weakness, Denies neck pain, Denies numbness and Denies tingling Integumentary/Breasts Skin/Breast: Denies pruritus, Denies erythema, Denies rash and Denies wounds Neurologic Neurologic: Denies behavioral changes, Denies confusion, Denies dizziness, Denies frequent falls, Denies loss of vision, Denies numbness, Denies tingling and Denies weakness Psychiatric Psychiatric: Denies anxiety, Denies behavioral changes, Denies confusion, Denies depression, Denies homicidal ideation and Denies suicidal ideation Endocrine Endocrine: Denies fatigue, Denies flushing and Denies palpitations Hematologic/Lymphatic Hematologic/Lymphatic: Denies easy bruising Allergic/Immunologic Allergic/Immunologic: Denies urticaria, Denies throat swelling and Denies wheezing Patient History <Mahad Mclaughlin PA-C - Last Filed: 11/18/22 15:51> Medical History Cognitive developmental delay COVID-19 (~08/2021) COVID-19 virus infection Developmental delay, moderate Essential hypertension Schizophrenia Severe obesity Surgical History No significant past surgical history Family History Mother Diabetes mellitus Hyperlipidemia Hypertension Mental health problem Father Drug use Social History household members: family caregiver/support person: Yes Smoking Status: Never smoker alcohol intake: never Smoking Status: Never smoker Substance Use Type: does not use Exam <Mahad Mclaughlin PA-C - Last Filed: 11/18/22 15:51> Narrative Exam Narrative: Const General:?cooperative, healthy appearing and comfortable [facility] Head:?normal to inspection Ears:?hearing grossly normal bilaterally Nose:?external nose normal Face and sinus:?normal facial exam and sinuses nontender Mouth:?oral mucosae normal Throat:?posterior oropharynx normal Eyes General:?appearance normal, both eyes and all related structures Neck Neck:?normal visual inspection and no lymphadenopathy noted Resp Effort & Inspection:?normal respiratory effort Auscultation:?clear to auscultation bilaterally Cardio Rate:?regular rate Rhythm:?regular rhythm Neuro General:?patient alert, patient awake and patient oriented x3 Initial Vital Signs Initial Vital Signs: Vital Signs Temperature 97.1 F L 11/18/22 11:59 Pulse Rate 81 11/18/22 11:59 Respiratory Rate 14 11/18/22 11:59 Blood Pressure 124/60 11/18/22 11:59 Pulse Oximetry 96 11/18/22 11:59 Oxygen Delivery Method 11/18/22 11:59 <Nelly Bullard DO - Last Filed: 11/20/22 07:30> Initial Vital Signs Initial Vital Signs: Vital Signs Temperature 97.1 F L 11/18/22 11:59 Pulse Rate 81 11/18/22 11:59 Respiratory Rate 14 11/18/22 11:59 Blood Pressure 124/60 11/18/22 11:59 Pulse Oximetry 96 11/18/22 11:59 Oxygen Delivery Method 11/18/22 11:59 Course <Mahad Mclaughlin PA-C - Last Filed: 11/18/22 15:51> Orders Ordered: ED Orders 11/18/22 12:05 XR chest 2V Stat Covid-19 + FLU A/B + RSV - PCR Stat Vital Signs Vital signs: Vital Signs - 8 hr 11/18/22 11:59 Temperature 97.1 F L Pulse Rate 81 Respiratory Rate 14 Blood Pressure 124/60 Pulse Oximetry 96 Oxygen Delivery Method Room Air <DO [place] Lance Last Filed: 11/20/22 07:30> Orders Ordered: ED Orders 11/18/22 12:05 XR chest 2V Stat Covid-19 + FLU A/B + RSV - PCR Stat Vital Signs Vital signs: Vital Signs - 8 hr 11/18/22 11:59 Temperature 97.1 F L Pulse Rate 81 Respiratory Rate 14 Blood Pressure 124/60 Pulse Oximetry 96 Oxygen Delivery Method Room Air MDM - URI/Sore Throat <Mahad Mclaughlin PA-C - Last Filed: 11/18/22 15:51> Lab Data Labs: Lab Results 11/18/22 Range/Units 12:05 SARS-CoV-2 (PCR) Negative (Negative) Influenza A (RT-PCR) Flu a positive H (NEGATIVE) Influenza B (RT-PCR) Flu b negative (NEGATIVE) RSV (PCR) Negative (Negative) Imaging Data Chest x-ray: Radiologist's Impression: PROCEDURE:? XR CHEST 2V ? INDICATIONS:? cough, fever, h/o pneumonia requiring vent ? TECHNIQUE:? 2 views of the chest were acquired.? ? COMPARISON:? [facility], CR, XR CHEST 1V, 09/17/2021, 10:24. ? FINDINGS:? ? Surgical changes and devices:? None.? ? Lungs and pleura:? An incomplete inspiratory result is noted, causing a crowded appearance to the lung markings.? No focal infiltrates are seen.? No pneumothorax or significant pleural effusions are seen. ? ? Mediastinum:? Mediastinal contours are normal.? Heart size is normal.? ? Bones and chest wall:? No suspicious bony abnormalities.? Soft tissues appear unremarkable.? IMPRESSION:? Lung volumes, without an acute abnormality seen by plain film. ? ? Dictated by: Jacques Haji M.D. on 11/18/2022 at 11:28 ? ? Approved by: Jaqcues Haji M.D. on 11/18/2022 at 11:28 ? MDM Narrative Medical decision making narrative: 37-year-old male with past medical history schizophrenia, developmental delay, essential hypertension presents to the ED with 2 days of fever, cough. Patient tested positive for influenza A. Recommend supportive measures with ibuprofen, Tylenol, OTC cough syrup. ED return precautions were discussed with patient and patient's mother. They verbalized understanding. <Nelly Bullard, - Last Filed: 11/20/22 07:30> Lab Data Labs: Lab Results 11/18/22 Range/Units 12:05 SARS-CoV-2 (PCR) Negative (Negative) Influenza A (RT-PCR) Flu a positive H (NEGATIVE) Influenza B (RT-PCR) Flu b negative (NEGATIVE) RSV (PCR) Negative (Negative) Discharge Plan Departure Patient Disposition: Home Clinical Impression: Influenza A Instructions: DI for Influenza -- Adult Activity Restrictions/Additional Instructions: You were evaluated in the ED today for a fever and cough. You tested positive for influenza A. You may take Tylenol, ibuprofen, [id number] cough syrup for your symptoms. Your chest x-ray was normal with no evidence of pneumonia. Please return to the ED if you have chest pain or shortness of breath. Prescriptions: No Action olanzapine 10 mg tablet 10 mg PO BEDTIME Qty: 90 3RF Referrals: Landry Carrillo MD [Primary Care Provider] - Visit Report Forms: Patient Portal/API <Nelly Bullard DO - Last Filed: 11/20/22 07:30> Cosign ED Attending Haroonature Attestation: I was immediately available in the department for consultation. Documentation has been reviewed. I agree with assessment and plan.
[2022-11-18 16:13] VITALS: BP 122/78; PULSE 78; RESP 15; TEMP 36.7; O2SAT 99
== END 2022-11-18 16:14 | disposition home or self-care (01) ==
PROVIDERS: Emergency Medicine; Emergency Provider Student in an Organized Health Care Education/Training Program; Family Provider Internal Medicine; PCP Internal Medicine
DX: J10.1 Influenza due to other identified influenza virus with other respiratory manifestations (principal); Z20.822 Contact with and (suspected) exposure to COVID-19
CPT/HCPCS: 0241U; 71046; 99283

== ENCOUNTER → 2024-05-24 13:00 | Outpatient (CLI) | payer MEDICARE, MEDICAID, SELFPAY ==
[2021-09-16 04:00] VITALS: BMI 42.1
[2021-09-17 16:50] VITALS: RESP 16
[2021-09-17 19:46] VITALS: PULSE 56; RESP 18; O2SAT 96
--- NOTE | 2024-05-24 13:02 | DI.RAD.S_ITS ---
PROCEDURE: XR CHEST 2V INDICATIONS: cough for 3 weeks after swimming TECHNIQUE: 2 views of the chest were acquired. COMPARISON: [facility], CR, XR CHEST 2V, 11/18/2022, 12:11. FINDINGS: Surgical changes and devices: None. Lungs and pleura: Lungs are clear. No pleural effusions or pneumothorax. Mediastinum: Mediastinal contours are normal. Heart size is normal. Bones and chest wall: No suspicious bony abnormalities. Soft tissues appear unremarkable. IMPRESSION: No acute pulmonary process. Dictated by: Hilary Moreno M.D. on 05/24/2024 at 14:32 Approved by: Hilary Moreno M.D. on 05/24/2024 at 14:32
== END ==
LOC: RAD 13:02
PROVIDERS: Family Provider Internal Medicine; Referring Provider Student in an Organized Health Care Education/Training Program; Visit Provider Student in an Organized Health Care Education/Training Program
DX: R05.8 Other specified cough (principal)
CPT/HCPCS: 71046

== ENCOUNTER → 2024-07-27 14:51 | Outpatient (CLI) | payer MEDICARE, MEDICAID, SELFPAY ==
[2021-09-16 04:00] VITALS: BMI 42.1
[2021-09-17 16:50] VITALS: RESP 16
[2021-09-17 19:46] VITALS: PULSE 56; RESP 18; O2SAT 96
--- NOTE | 2024-07-27 | DI.US.S_ITS ---
PROCEDURE: US THYROID INDICATIONS: HIGH SERUM TRIIODOTHYRONINE TECHNIQUE: Real-time scanning was performed of the thyroid gland, with image documentation. COMPARISON: None. FINDINGS: Thyroid: Right lobe measures 4.5 x 2 x 1.8 cm. Left lobe measures 5.5 x 1.7 x 1.4 cm. Isthmus is 0.3 cm thick. Echotexture is homogeneous. No actionable thyroid nodule identified. IMPRESSION: No actionable thyroid nodule identified. Overall homogeneous echotexture. ACR TI-RADS definitions and recommendations: TI-RADS 1 (benign): 0 points. FNA not needed. TI-RADS 2 (not suspicious): 2 points. FNA not needed. TI-RADS 3 (mildly suspicious): 3 points. * FNA if 2.5 cm or larger, follow up if 1.5 cm or larger (at 1, 3, and 5 years). TI-RADS 4 (moderately suspicious): 4-6 points. * FNA if 1.5 cm or larger, follow up if 1 cm or larger (at 1, 2, 3, and 5 years). TI-RADS 5 (highly suspicious): 7 points or more. * FNA if 1 cm or larger, follow up if 0.5 cm or larger (every year for 5 years). Dictated by: Charlie Giraldo M.D. on 07/28/2024 at 13:17 Approved by: Charlie Giraldo M.D. on 07/28/2024 at 13:18
== END ==
PROVIDERS: Family Provider Internal Medicine; PCP Physician Assistant; Referring Provider Physician Assistant; Visit Provider Physician Assistant
DX: R79.89 Other specified abnormal findings of blood chemistry (principal)
CPT/HCPCS: 76536